=== PATIENT | male | born 1945 | race Caucasian/White ===

== ENCOUNTER → 2017-03-22 | Outpatient (REF) | payer MEDICARE, OTHER ==
[~2017-03-22] MED LIST: /AUGM875TA PO; /WARF5TA PO; ACET65TA PO; AMIO20TA PO; ANDROGEL TOP; ASPI81TA83 OR; ATOR40TA PO; CALCIUM; CALCIUM W VIT D PO; COLA100C3 PO; COUM2.5T11 PO; COUMADIN PO; DDAVP; DESM1SPR; DESMOPRESSIN; DESMOPRESSIN 0.01%; DRIS50002 PO; KEPP750T3 PO; Keppra PO; LEVETIRACETAM PO; LEVO200T4 PO; LEVO25TA2 OR; LEVO2TA OR; LIPI20TA PO; MILKSUS PO; MULT1TAB10 PO; Multivitamin PO; NAPR220C PO; NAPR250T2 PO; NAPR250T45 PO; NAPR500T81 OR; NORV5TAB PO; NYST10PW TOP; OMEP20CA3 PO; OMEP20TA7 OR; OMEP40CA2 PO; PERC5TAB6 PO; PERC5TAB8 OR; PERC5TAB8 PO; PERC7.5T8 PO; PHEN100C OR; PRED10TA PO; PRED10TA2 OR; PRED5EL OR; PRED5TA PO; PRED5TAB OR; PREDNISONE PO; PREDPOW10 PO; SENO8.6T2 PO; SYNT175T OR; SYNT50TA OR; TEST5GEL TOP; TUMS500C PO; TYLE325T5 PO; XARE20TA PO; [UNRECOGNIZED DRUG - OTHER]; [UNRECOGNIZED DRUG - OTHER]; [UNRECOGNIZED DRUG - OTHER] TOP; naproxen OR
== END ==
LOC: M LAB REF 13:29
PROVIDERS: ATTEND Internal Medicine
DX: E03.9 Hypothyroidism, unspecified (principal)

== ENCOUNTER → 2017-04-10 | Outpatient (CLI) | payer MEDICARE, OTHER ==
[~2017-04-10] MED LIST changes: +E-Z-GAS II EFFERVESCENT PACKET (SODIUM BICARB./CITRIC ACID/SIMETHICONE) As Ordered ONE; +E-Z-HD 98% w/w 340GM SUSP BTL As Ordered ONE; +E-Z-PAQUE 96% w/w SUSP 176GM BTL As Ordered ONE
--- NOTE | 2017-04-10 15:43 | REP ---
ESOPHAGRAM AND UPPER GI SINGLE CONTRAST: The procedure was performed under the direct supervision of Dr. Logan. The images were reviewed with Dr. Logan. A single view PA chest x-ray is submitted as a software quality engineer film. There is no change compared to a previous chest x-ray performed on 09/28/2016. Abdominal software quality engineer film shows no organomegaly or pathological masses. The intestinal gas pattern is nonspecific. There are bowel sutures and surgical clips noted in the epigastric region and left abdomen consistent with the patient's history of gastric bypass. Liquid barium was administered in the erect and prone oblique positions. The oral and pharyngeal stages of deglutition are unremarkable. There is cricopharyngeal hypertrophy. Esophageal transport is prompt and efficient and there is no esophagitis, stricture, or mucosal ring. There is a hiatal hernia present. Gastroesophageal reflux is not demonstrated on this examination. Contrast passes through the stomach pouch and anastomosis without delay. There is no evidence of stricture or obstruction. There is no evidence of gastritis, neoplasm, or ulcer disease. The visualized portion of the proximal small bowel appears normal in course and caliber. IMPRESSION: 1. There is cricopharyngeal hypertrophy. 2. Small hiatal hernia. 3. Postsurgical changes consistent with the patient's history of gastric bypass. 2 minutes and 7 seconds of fluoroscopic time was utilized for this procedure. Reviewed by ARI Stewart 04/10/2017 04:14 PEdited and Signed by Huey Logan MD 04/10/2017 05:24 P
== END ==
LOC: M RAD 08:43
PROVIDERS: ATTEND Internal Medicine
DX: Q79.1 Other congenital malformations of diaphragm (principal); K44.9 Diaphragmatic hernia without obstruction or gangrene; Z98.0 Intestinal bypass and anastomosis status

== ENCOUNTER → 2017-04-19 | Outpatient (REF) | payer MEDICARE, OTHER ==
[~2017-04-19] MED LIST changes: -E-Z-GAS II EFFERVESCENT PACKET (SODIUM BICARB./CITRIC ACID/SIMETHICONE) As Ordered ONE; -E-Z-HD 98% w/w 340GM SUSP BTL As Ordered ONE; -E-Z-PAQUE 96% w/w SUSP 176GM BTL As Ordered ONE
[2017-04-19 14:03] LABS: FREE T4 1.54 NG/DL (0.76-1.46)
[2017-04-19 14:10] LABS: VITAMIN B12 LEVEL 294 PG/ML (247-911)
[2017-04-19 14:11] LABS: FOLATE > 24.0 NG/ML (>5.4)
[2017-04-22 15:23] LABS: VITAMIN E LEVEL 8.7 mg/L (5.3-17.5)
== END ==
LOC: M LABNEURO 12:27
PROVIDERS: ATTEND Psychiatry & Neurology Neurology
DX: R20.2 Paresthesia of skin (principal); Z13.1 Encounter for screening for diabetes mellitus; Z79.899 Other long term (current) drug therapy

== ENCOUNTER → 2017-04-25 | Outpatient (CLI) | payer MEDICARE, OTHER | LOC: M RAD 07:46 | PROVIDERS: ATTEND Psychiatry & Neurology Neurology | DX: R25.1 Tremor, unspecified (principal); R26.81 Unsteadiness on feet ==

== ENCOUNTER → 2017-06-26 | Outpatient (CLI) | payer MEDICARE, OTHER ==
[~2017-06-26] MED LIST changes: +AMIO200T PO; -AMIO20TA PO; -ATOR40TA PO; +ATOR40TA75 PO; -COLA100C3 PO; +COLA100C5 PO; -COUM2.5T11 PO; +COUM2.5T17 PO; -NAPR250T2 PO; +NAPR250T4 PO; +PERC5TAB12 PO; -PERC5TAB6 PO; -SENO8.6T2 PO; +SENO8.6T5 PO
--- NOTE | 2017-07-08 23:40 | ECWPNPC ---
PATIENT NAME: GLADIS CUNHA : 1945 GENDER: MALE VISIT DATE: 06/26/2017 DISCHARGE DATE: 06/26/17 1551 VISIT LOCKED DATE TIME: PHYSICIAN: ANA LAURA OVALLES RESOURCE: ANA LAURA OVALLES REASON FOR APPOINTMENT 1. LOW BACK PAIN HISTORY OF PRESENT ILLNESS FALL RISK SCREENING: SCREENING :NO FALLS IN THE PAST YEAR PAIN SCREENING: PATIENT HAS A COMPLAINT OF ACUTE OR CHRONIC PAIN :YES TODAY'S VISIT: NOTES: PT REFERRED BY DR MARTI/[facility] FOR LOW BACK PAIN.ONSET > [address]IVE WAS UNABLE TO STAND AND WALK.PAIN IS CENTERED ACROSS THE BACK. NO RADIATION TO LEGS. HAS HAD INCIDENCE OF WEAKNESS IN KNEES. THIS HAS HAPPENED SEVERAL TIMES - RELIEVED WITH SITTING DOWN. THIS WAS RELIEVED IN A FEW MINUTES. HAS STOCKING LIKE N/T IN BOTH FEET X SEVERAL YEARS. HAD EMG - NEUROPATHY. NO SPECIFIC TIME F DAY - PAIN WOSE WHEN BEING VERTICAL OR WITH UNCOMFORTABLE CHAIR. NO LOSS OF BOWEL OR BLADDER CONTROL. HAS HAD SOME BOWEL URGENCY.RATES HIS PAIN TODAY 5/10. DESCRIBES THE PAIN ACHING AND STABBING.. CURRENT MEDICATIONS TAKING DDAVP RHINAL TUBE 0.01 % SOLUTION 0.05 ML NASALLY TWICE A DAY TAKING ANDROGEL PUMP 1 % GEL TRANSDERMAL TAKING LEVOTHYROXINE SODIUM 200 MCG TABLET 1 TABLET ON AN EMPTY STOMACH IN THE MORNING ORALLY ONCE A DAY TAKING PREDNISONE 5 MG TABLET 1 TABLET ORALLY ONCE A DAY, NOTES: 2 Q AM; 1 QPM TAKING KEPPRA 750 MG TABLET 2 TABLET ORALLY BEFORE BEDTIME TAKING OMEPRAZOLE 40 MG CAPSULE DELAYED RELEASE 1 CAPSULE ORALLY ONCE A DAY TAKING ATORVASTATIN CALCIUM 40 MG TABLET 1 TABLET ORALLY ONCE A DAY TAKING XARELTO 20 MG TABLET 1 TABLET WITH FOOD ORALLY ONCE A DAY TAKING DIGOXIN 125 MCG TABLET 1 TABLET ORALLY ONCE A DAY MEDICATION LIST REVIEWED AND RECONCILED WITH THE PATIENT PAST MEDICAL HISTORY SEIZURES CRANIOPHARYNGIOMA RESCECTED 2X SLEEP APNEA - WEARS CPAP ALLERGIES N.K.D.A. SURGICAL HISTORY RESECTION OF CRANIOPHARYNGIOMA 1997 SECOND RESECTION OF ABOVE (CRANIOPHARYNGIOMA) 2000 TOTAL KNEE REPLACEMENT BARIATRIC SURGERY FOR WEIGHT LOSS PACEMAKER FAMILY HISTORY FATHER: 89 YRS MOTHER: 90 YRS, DIAGNOSED WITH CANCER SIBLINGS: ALIVE 2 BROTHER(S) . 1 SON(S) , 1 DAUGHTER(S) . 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 [employer] LATTER-DAY LANGUAGE LANGUAGES SPOKEN:MALAGASY EDUCATION LEVEL OF EDUCATION:PROFESSIONAL SCHOOLS/MASTERS/PHD LEARNING BARRIERS / SPECIAL NEEDS VISION IMPAIRED?YES :CORRECTIVE LENSES COGNITIVELY IMPAIRED?NO READINESS TO LEARN?YES LEARNING PREFERENCES?YES :BOOKLETS, HANDOUTS ADVANCE DIRECTIVES HEALTH CARE PROXY?YES NAME OF HCP [facility]? PABLITO CUNHA POWER OF GLAZE GRINDER?YES HOSPITALIZATION/MAJOR DIAGNOSTIC PROCEDURE SEE ABOVE RADIATION THERAPY FOR REOCCURANCE OF THE ABOVE PROBLEM 2002 REVIEW OF SYSTEMS REVIEWED BY: PROVIDER: . CONSTITUTIONAL: ANY CHANGE IN YOUR MEDICAL CONDITION? NO . CHILLS NO . FEVER NO . INFECTION: DO YOU HAVE NEW INFECTIONS? NO . DO YOU HAVE HISTORY OF MRSA? NO . MUSCULOSKELETAL: ANY NEW PATTERNS OF PAIN OR NUMBNESS? YES, BILAT FOOT NUMBNESS . SYTEMIC LUPUS NO . GASTROENTEROLOGY: ANY NEW CHANGE IN BOWEL CONTROL? NO . BARRETTS ESOPHAGUS NO . CIRRHOSIS NO . HEPATITIS NO . LIVER FAILURE NO . ACID REFLUX NO . UNEXPLAINED WEIGHT LOSS NO . GENITOURINARY: ANY NEW CHANGE IN BLADDER CONTROL? NO . IS THERE A CHANCE YOU COULD BE ? NO . HEMATOLOGY/LYMPH: DO YOU TAKE ANY BLOOD THINNERS? (FOR EXAMPLE- COUMADIN, PLAVIX, AGGRENOX, PLATEL, PRADAXA, OR XARELTO) YES, XARELTO . WHEN WAS YOUR LAST DOSE? DATE: TIME: . LOW PLATELET COUNT NO . SICKLE CELL DISEASE NO . VON WILLIEBRANDS NO . FACTOR V LEIDEN NO . THALLASEMIA NO . ANEMIA NO . EASY BRUISING NO . NEUROLOGY: ANY NEW SEIZURES? HX OF SIEZURE - WELL MANAGED ON KERA - LAST EVENT 3 YEARS AGO . MYAASTHENIA GRAVIS NO . BALANCE DIFFICULTY PRETTY GOOD . CARDIOLOGY: DO YOU HAVE A PACEMAKER OR DEFIBRILLATOR? YES - 2016 . ANGINA NO . HEART ATTACK NO . HEART SURGERY NO . CONGESTIVE HEART FAILURE/FLUID OVERLOAD NO . CHEST PAIN NO . HIGH BLOOD PRESSURE NO . IRREGULAR HEART BEAT NO . RESPIRATORY: HAVE YOU BEEN SICK IN THE PAST WEEK? NO . FEVER NO . FLU LIKE SYMPTOMS? NO . CPAP NO . BYPAP NO . ASTHMA NO . EMPHYSEMA NO . CHRONIC LUNG DISEASES NO . SHORTNESS OF BREATH ON EXERTION NO . COUGH NO . SNORING NO . INTEGUMENTARY: DO YOU HAVE ANY RASHES OR OPEN SORES? NO . ALLERGIC/IMMUNO: ARE YOU ALLERGIC TO SHELLFISH OR IV DYE? NO . ANY NEW ALLERGIES? NO . PSYCHIATRIC: DO YOU HAVE THOUGHTS OF HURTING YOURSELF OR SOMEONE ELSE? NO . ARE YOU ABUSED, NEGLECTED, OR IN AN UNSAFE ENVIRONMENT? NO . ENDOCRINOLOGY: ARE YOU DIABETIC? NO . THYROID DISORDER NO . OTHER: DO YOU NEED ANY PRESCRIPTIONS? NO . IF YES, PLEASE LIST: ____ . ANY NEW PROBLEMS WITH YOUR MEDICATIONS? NO . WHEN DID YOU LAST EAT? ____ . WHEN DID YOU LAST DRINK? ____ . WHAT DID YOU LAST DRINK? ____ . NAME OF PERSON DRIVING YOU HOME? ____ . DO YOU HAVE ANY OTHER QUESTIONS OR CONCERNS NO . PSYCHOLOGY: BECKS DEPRESSION INVENTORY DENIES SUICIDAL OR HOMICIDAL IDEATION . VITAL SIGNS WT 298.0 LBS, HT 70 IN, BMI 42.75 INDEX, BP 141/68 MM HG, HR 60 /MIN, RR 18 /MIN, TEMP 97.7 F, OXYGEN SAT % 95%, NA INITIALS SC 13:03, REVIEWED BY: EM. EXAMINATION GENERAL EXAMINATION: GENERAL APPEARANCE:WELL GROOMED. PSYCHALERT , ORIENTED X 3 , APPROPRIATE MOOD AND AFFECT , GOOD EYE CONTACT. HEENT:NORMOCEPHALIC, THICK NECK, NO LYMPHADENOPATHY, NO THYROMEGLY. LUNGS:CLEAR TO AUSCULTATION BILATERALLY, NO WHEEZES, RALES OR RHONCHI. HEART:NO CAROTID BRUIRS, , HEART RATE REGULAR, NORMAL S1S2, NO MURMURS, CLICK OR RUBS. MUSCULOSKELETAL:MUSCLE STRENGTH TESTING 5/5 BILATERAL UPPER AND LOWER EXTREMITIES. POINT TENDERNESS OVER LUMBAR SPINOUS PROCESSES AND ACROSS LUMBAR FACETS AND PARAVERTEBRAL MUSCLES. CAN FLEX TO 45 DEGREES, EXTED TO 5 DEGREES. PAIN WITH ROTATION. MIN PAIN WITH SLR BILATERALLY. . EXTREMITIES:1+ EDEMA BILATER LOWER EXTREMITIES. NEUROLOGIC EXAM:CN'S II-XII GROSSLY INTACT. STOCKING AND GLOVE SENSORY CHANGE FRO TOES TO ANKLE BILATERALLY. DTR'S TRACE TO ABSENT BILATERALLY. PLANTAR RESPONSE EQUIVICAL. NO CLONUS. , ABNORMAL ROMBERG TEST. ASSESSMENTS LUMBAR FACET ARTHROPATHY - M12.88 (PRIMARY) NEUROPATHY - G62.9 TREATMENT LUMBAR FACET ARTHROPATHY START TRAMADOL HCL TABLET, 50 MG, 1 TABLET NEEDED, ORALLY, EVERY 6 HRS PRN PAIN MDD=4, 30 DAY(S), 120, REFILLS 1 INJECTION FACET JOINT/NERVE LUMBAR/SACRALRIGOBERTOANA LAURA MEDINA 06/26/2017 3:07:05 PM > DIAGNOSTIC LUMBAR FACET BLOCK - L3-4, L4 - 5 NOTES: NEED OK STOP BLOOD THINNER FROM DR QUINTERO,FACET JOINT INJECTION MATERIAL WAS PRINTED, REVIEWED AND GIVEN TO PT. STOP NAPROXYN, FALLS CARE PLAN: 1. RECOMMEND REMOVING ALL THROW RUGS. 2. RECOMMEND NIGHT LIGHTS 3. RECOMMEND WEARING RUBBER SOLED SHOES AND TO NOT GO BAREFOOT. 4.. ADVISED TO CHANGE POSITION SLOWLY FROM SUPINE TO STANDING TO AVOID DIZZINESS. 5. ADVISED TO USE ASSISTIVE DEVICE SUCH CANE OR WALKER . , #128 - SCREENING BMI AND F/U PLAN IN : BMI ABOVE NORMAL TODAY. DISCUSSED WITH PATIENT NUTRITIONAL FOOD CHOICES TO ASSIST WITH WEIGHT LOSS. RECCOMMENDED REDUCING SALT, SUGAR, SODA INTAKE. RECOMMEND INCREASE ACTIVITY TO INCLUDE WALKING ON A REGULAR BASIS. CLINICAL NOTES: LENGTHY DISCUSSION REGARDING AVAILABLE MEDS FOR PAIN MANAGEMENT DISCUSSED. PT REPORTS HE HAS USED TRAMADOL WITH NO ADVERSE EFFECTS. I DID DISCUSS WITH HIM THAT THIS CAN INCREASE HIS RISK OF SEIZURE. HE STATES HE IS COMFORTABLE WITH THIS AND WISHES TO PROCEDE. PREVENTIVE MEDICINE PT STATES HE NEVER STOPS DDAVP OR PREDNISONE PRE-PROCEDURE EVER. PROCEDURE CODES FA211 ESTABILISHED PATIENT [facility] FACILITY CHARGE G8783 BP SCR PRFRM RCMDD DEFIND SCR INTVL G8418 BMI < 22 CALCUATE W/FOLLOWUP G8730 PAIN ASSESS POS TOOL F/U PLAN DOC 3016F PT SCRND UNHLTHY [place] USE 1124F ACP DISCUSS-NO DSCNMKR DOCD 1036F TOBACCO NON-USER 0518F FALL PLAN OF CARE DOCD G8427 DOC MEDS VERIFIED W/[place] 3288F FALL RISK ASSESSMENT DOCD DISPOSITION & COMMUNICATION FOLLOW UP AFTER PROCEDURE (REASON: NEED MRI REPORT/ CHECK AUTH FOR LUMBAR FACET BLOCK) ELECTRONICALLY SIGNED BY RAYMUNDO REED ON 07/08/2017 AT 03:19 PM EDT DISCLAIMER : THIS IS A VISIT SUMMARY EXTRACTED FROM THE [employer] CHART. IT IS NOT A COPY OF THE [employer] PROGRESS NOTE. MTDD
== END ==
LOC: M PAIN 13:00
PROVIDERS: ATTEND Nurse Practitioner Family
DX: M12.88 Other specific arthropathies, not elsewhere classified, other specified site (principal); G62.9 Polyneuropathy, unspecified; M54.5 Low back pain; G89.29 Other chronic pain; G40.89 Other seizures; G47.30 Sleep apnea, unspecified; Z79.899 Other long term (current) drug therapy; Z98.84 Bariatric surgery status; Z95.0 Presence of cardiac pacemaker; Z96.659 Presence of unspecified artificial knee joint

== ENCOUNTER → 2017-07-11 | Outpatient (CLI) | payer MEDICARE, OTHER ==
[~2017-07-11] MED LIST changes: +BUPIVACAINE HCL 0.25% 30 ML VIAL As Ordered ONE; +ISOVUE-M 300 61% 15ML VIAL (Q9967) As Ordered ONE; +LIDOCAINE 1% SDV INJ 30 ML VIAL As Ordered ONE
--- NOTE | 2017-07-11 11:36 | REP ---
Partial lumbar spine series: Four views. . History: Injection procedure for pain. One minute 12 seconds of fluoroscopy time is reported. Findings: A sequence of four fluoroscopically obtained last image hold procedural spot radiographs of the lumbar spine document needle position and contrast injection associated with injection procedure. Signed by Huey Logan MD 07/11/2017 11:27 A
--- NOTE | 2017-07-11 23:35 | ECWPNPC ---
PATIENT NAME: GLADIS CUNHA : 1945 GENDER: MALE VISIT DATE: 07/11/2017 DISCHARGE DATE: 07/11/17 1120 VISIT LOCKED DATE TIME: PHYSICIAN: THAO ALLEN RESOURCE: THAO ALLEN REASON FOR APPOINTMENT 1. DIAG. LUMBAR FACET HISTORY OF PRESENT ILLNESS HISTORY OF PRESENT ILLNESS: PAIN THE PATIENT DESCRIBES THE PAIN... FALL RISK SCREENING: SCREENING :NO FALLS IN THE PAST YEAR CURRENT MEDICATIONS TAKING DDAVP RHINAL TUBE 0.01 % SOLUTION 0.05 ML NASALLY TWICE A DAY, NOTES: 07/11/17 07 TAKING ANDROGEL PUMP 1 % GEL TRANSDERMAL , NOTES: 07/11/17 07 TAKING LEVOTHYROXINE SODIUM 200 MCG TABLET 1 TABLET ON AN EMPTY STOMACH IN THE MORNING ORALLY ONCE A DAY, NOTES: 07/11/17 0230 TAKING PREDNISONE 5 MG TABLET 1 TABLET ORALLY ONCE A DAY, NOTES: 07/11/17 07 TAKING KEPPRA 750 MG TABLET 2 TABLET ORALLY BEFORE BEDTIME, NOTES: 07/10/17 220 TAKING OMEPRAZOLE 40 MG CAPSULE DELAYED RELEASE 1 CAPSULE ORALLY ONCE A DAY, NOTES: 07/11/17 07 TAKING ATORVASTATIN CALCIUM 40 MG TABLET 1 TABLET ORALLY ONCE A DAY, NOTES: 07/10/17 220 TAKING XARELTO 20 MG TABLET 1 TABLET WITH FOOD ORALLY ONCE A DAY, NOTES: 07/08/17 1600 TAKING DIGOXIN 125 MCG TABLET 1 TABLET ORALLY ONCE A DAY, NOTES: 07/11/17 0700 TAKING TRAMADOL HCL 50 MG TABLET 1 TABLET NEEDED ORALLY EVERY 6 HRS PRN PAIN MDD=4, NOTES: > 3 WEEKS TAKING NAPROXEN 250 MG TABLET 1 TABLET ORALLY TWICE A DAY, NOTES: 07/08/17 1600 MEDICATION LIST REVIEWED AND RECONCILED WITH THE PATIENT PAST MEDICAL HISTORY SEIZURES CRANIOPHARYNGIOMA RESCECTED 2X SLEEP APNEA - WEARS CPAP ALLERGIES N.K.D.A. REVIEW OF SYSTEMS REVIEWED BY: PROVIDER: . CONSTITUTIONAL: ANY CHANGE IN YOUR MEDICAL CONDITION? YES PT HAD CARPAL TUNNEL SURGERY ON THE RIGHT HAND 06/12/17 . CHILLS NO . FEVER NO . INFECTION: DO YOU HAVE NEW INFECTIONS? NO . DO YOU HAVE HISTORY OF MRSA? NO . MUSCULOSKELETAL: ANY NEW PATTERNS OF PAIN OR NUMBNESS? NO . GASTROENTEROLOGY: ANY NEW CHANGE IN BOWEL CONTROL? NO . GENITOURINARY: ANY NEW CHANGE IN BLADDER CONTROL? NO . IS THERE A CHANCE YOU COULD BE ? NO . HEMATOLOGY/LYMPH: DO YOU TAKE ANY BLOOD THINNERS? (FOR EXAMPLE- COUMADIN, PLAVIX, AGGRENOX, PLATEL, PRADAXA, OR XARELTO) YES . WHEN WAS YOUR LAST DOSE? DATE: TIME: 07/07/17 1600 . NEUROLOGY: HAVE YOU FALLEN IN THE PAST 6 MONTHS? NO . ANY NEW EXTREMITY NUMBNESS OR WEAKNESS? NO . CARDIOLOGY: DO YOU HAVE A PACEMAKER OR DEFIBRILLATOR? NO . RESPIRATORY: HAVE YOU BEEN SICK IN THE PAST WEEK? NO . FEVER NO . FLU LIKE SYMPTOMS? NO . COUGH NO . INTEGUMENTARY: DO YOU HAVE ANY RASHES OR OPEN SORES? YES OPEN SCABBED AREA RIGHT WRIST FROM SURGICAL INCISION 06/12/17 . ALLERGIC/IMMUNO: ARE YOU ALLERGIC TO SHELLFISH OR IV DYE? NO . ANY NEW ALLERGIES? NO . PSYCHIATRIC: DO YOU HAVE THOUGHTS OF HURTING YOURSELF OR SOMEONE ELSE? NO . ARE YOU ABUSED, NEGLECTED, OR IN AN UNSAFE ENVIRONMENT? NO . ENDOCRINOLOGY: ARE YOU DIABETIC? NO . OTHER: DO YOU NEED ANY PRESCRIPTIONS? NO . IF YES, PLEASE LIST: ____ . ANY NEW PROBLEMS WITH YOUR MEDICATIONS? NO . WHEN DID YOU LAST EAT? ____07/10/17 2200 . WHEN DID YOU LAST DRINK? ____07/11/17 0700 . WHAT DID YOU LAST DRINK? ____WATER . NAME OF PERSON DRIVING YOU HOME? ____KATHY . DO YOU HAVE ANY OTHER QUESTIONS OR CONCERNS NO . VITAL SIGNS WT 289 LBS, HT 70 IN, BMI 41.46 INDEX, BP 140/65 MM HG, HR 62 /MIN, RR 18 /MIN, TEMP 97.2 F, OXYGEN SAT % 97%, SAFE IN ENV? (Y/N) Y, REVIEWED BY: CHRIS. ASSESSMENTS SPONDYLOSIS OF LUMBAR REGION WITHOUT MYELOPATHY OR RADICULOPATHY - M47.816 (PRIMARY) SPONDYLOSIS OF LUMBOSACRAL REGION WITHOUT MYELOPATHY OR RADICULOPATHY - M47.817 PROCEDURES PN LUMBAR FACET BLOCK DIAGNOSTIC PRE PROCEDURE DIAGNOSIS LUMBAR SPONDYLOSIS, LUMBOSACRAL SPONDYLOSIS POST PROCEDURE DIAGNOSIS LUMBAR SPONDYLOSIS, LUMBOSACRAL SPONDYLOSIS PROCEDURE BILATERAL L4-L5 AND BILATERAL L5-S1 FACET BLOCK DIAGNOSTIC NUMBER [address] THOA ALLEN SENIOR [employer] ADMINISTRATOR NONE ANESTHESIA LOCAL PRE PROCEDURE NOTE THE PATIENT WITH HISTORY OF CHRONIC LOW BACK PAIN. I EVALUATED THE PATIENT AND REVIEWED THE CHART. I WENT OVER THE RISKS, ALTERNATIVES, AND BENEFITS ASSOCIATED WITH THIS PROCEDURE. THE PATIENT WOULD LIKE TO PROCEED AND GAVE CONSENT TO PERFORM THE PROCEDURE. AGREED WITH THE PATIENT WE ARE DOING THIS PROCEDURE TO DETERMINE IF THE PATIENT IS A CANDIDATE FOR A RADIOFREQUENCY ABLATION OF THE FACETS JOINTS. THE PATIENT DENIES UNEXPLAINABLE WEIGHT LOSS, FEVER, CHILLS, OR NEW CHANGES IN URINARY OR BOWEL CONTROL DESCRIPTION OF PROCEDURE THE PATIENT WAS BROUGHT TO THE PROCEDURE ROOM AND PLACED IN THE PRONE POSITION. THE LUMBOSACRAL AREA WAS CLEANED WITH CHLORAPREP SOLUTION AND DRAPED ASEPTICALLY. THE PROCEDURE WAS DONE UNDER STERILE CONDITIONS. I CHECKED LATERALITY AND THE LEVEL WHERE THE PROCEDURE WAS GOING TO BE PERFORMED WITH THE PATIENT AND THE SUPPORTING STAFF AT THE MOMENT OF THE TIME OUT IN THE PROCEDURE ROOM. UNDER FLUOROSCOPIC GUIDANCE, TARGETS WERE SELECTED AT THE INTERSECTION OF THE RIGHT AND LEFT TRANSVERSE PROCESS OF L4, L5 AND ALA OF S1 WITH ITS RESPECTIVE SUPERIOR ARTICULAR PROCESS. LIDOCAINE WAS USED TO NUMB THE SKIN AND THE SUBCUTANEOUS TISSUE BELOW IT. SPINAL NEEDLE, 22-GAUGE WAS ADVANCED UNDER FLUOROSCOPIC GUIDANCE AND FOLLOWING PATIENT FEEDBACK UNTIL THE TARGETS WERE REACHED. POSITION OF THE NEEDLES WAS VERIFIED WITH AP AND LATERAL VIEWS. AFTER PROPER POSITION OF THE NEEDLES WAS ACHIEVED, ISOVUE-M DYE 30% 0.1 ML WAS INJECTED AT EACH SITE SHOWING ADEQUATE SPREAD OF THE DYE. THEN A SOLUTION OF 0.4 ML OF BUPIVACAINE 0.25% WAS INJECTED AT EACH SITE. THERE WAS NO EVIDENCE OF BLOOD, PARESTHESIA OR CEREBROSPINAL FLUID DURING THE PROCEDURE. THE PATIENT WAS SENT TO THE RECOVERY ROOM. THE PATIENT WAS MOVING THE EXTREMITIES AND DOING WELL. THERE WAS NO COMPLICATION DURING THE PROCEDURE. FLUOROSCOPY TIME WAS 72 SECONDS POST PROCEDURE NOTE THE PATIENT WILL DOCUMENT HIS PAIN LEVEL AND RESPONSE TO THIS PROCEDURE EVERY 30 MINUTES. THE PATIENT WILL BE SEEN IN A FOLLOW UP IN THE NEXT FEW WEEKS. FURTHER DETERMINATION FOR HIS CASE WILL BE DONE AT THE NEXT VISIT. INSTRUCTIONS WERE GIVEN, QUESTIONS WERE ANSWERED, AND THE PATIENT EXPRESSED UNDERSTANDING AND AGREED WITH THE PLAN. I, FAHEEM SIMPSON, DOCUMENTED THE ABOVE INFORMATION ACTING A SCRIBE FOR DR. ALLEN. I, DR. ALLEN, HAVE REVIEWED THE ABOVE DOCUMENT, SCRIBED BY FAHEEM SIMPSON, AND I VERIFY THAT IT IS ACCURATE DIAGNOSTIC IMAGING [facility] FACET BLOCK (PAIN)[id number] PROCEDURE CODES 03495 INJ PARAVERT F JNT L/S 1 LEV 31683 INJ PARAVERT F JNT L/S 2 LEV 6045F RADXPS IN END [id number] PXD DISPOSITION & COMMUNICATION FOLLOW UP 3 WEEKS ELECTRONICALLY SIGNED BY THAO ALLEN MD ON 07/11/2017 AT 05:31 PM EDT DISCLAIMER : THIS IS A VISIT SUMMARY EXTRACTED FROM THE [employer] CHART. IT IS NOT A COPY OF THE [email or web address] PROGRESS NOTE. MTDD
== END ==
LOC: M PAIN 08:30
PROVIDERS: ATTEND Anesthesiology
DX: G89.29 Other chronic pain (principal); G47.30 Sleep apnea, unspecified; M47.816 Spondylosis without myelopathy or radiculopathy, lumbar region; M47.817 Spondylosis without myelopathy or radiculopathy, lumbosacral region; M54.5 Low back pain; Z79.891 Long term (current) use of opiate analgesic; Z79.899 Other long term (current) drug therapy
CPT/HCPCS: 64493; 64494; Q9967

== ENCOUNTER → 2017-07-25 | Outpatient (CLI) | payer MEDICARE, OTHER ==
[~2017-07-25] MED LIST changes: -BUPIVACAINE HCL 0.25% 30 ML VIAL As Ordered ONE; -ISOVUE-M 300 61% 15ML VIAL (Q9967) As Ordered ONE; -LIDOCAINE 1% SDV INJ 30 ML VIAL As Ordered ONE
--- NOTE | 2017-08-22 01:26 | ECWPNPC ---
PATIENT NAME: GLADIS CUNHA : 1945 GENDER: MALE VISIT DATE: 07/25/2017 DISCHARGE DATE: 07/25/17 1245 VISIT LOCKED DATE TIME: PHYSICIAN: ANA LAURA OVALLES RESOURCE: ANA LAURA OVALLES REASON FOR APPOINTMENT 1. POST FACET HISTORY OF PRESENT ILLNESS HISTORY OF PRESENT ILLNESS: PAIN THE PATIENT DESCRIBES THE PAIN... FALL RISK SCREENING: SCREENING :NO FALLS IN THE PAST YEAR TODAY'S VISIT: NOTES: S/P BILATERAL LUMBAR FACET BLOCK 07/11/17. HAD EXCELLANT RESPONSE ON LEFT, AND 30-50 % ON RIGHT. AFTER WORKING AT [employer], NOT LEFT, NO REAL CHANGE IN SLEEP. AFTER PROCEDURE HAD PAIN IN RIGHT GROIN WITH SOME DIFF LIFTING RIGHT LEG. . CURRENT MEDICATIONS TAKING DDAVP RHINAL TUBE 0.01 % SOLUTION 0.05 ML NASALLY TWICE A DAY TAKING ANDROGEL PUMP 1 % GEL TRANSDERMAL TAKING LEVOTHYROXINE SODIUM 200 MCG TABLET 1 TABLET ON AN EMPTY STOMACH IN THE MORNING ORALLY ONCE A DAY TAKING PREDNISONE 5 MG TABLET 1 TABLET ORALLY ONCE A DAY TAKING KEPPRA 750 MG TABLET 2 TABLET ORALLY BEFORE BEDTIME TAKING OMEPRAZOLE 40 MG CAPSULE DELAYED RELEASE 1 CAPSULE ORALLY ONCE A DAY TAKING ATORVASTATIN CALCIUM 40 MG TABLET 1 TABLET ORALLY ONCE A DAY TAKING XARELTO 20 MG TABLET 1 TABLET WITH FOOD ORALLY ONCE A DAY TAKING DIGOXIN 125 MCG TABLET 1 TABLET ORALLY ONCE A DAY TAKING NAPROXEN 250 MG TABLET 1 TABLET ORALLY TWICE A DAY, NOTES: TAKING TOTAL OF 3 PER DAY NOT-TAKING TRAMADOL HCL 50 MG TABLET 1 TABLET NEEDED ORALLY EVERY 6 HRS PRN PAIN MDD=4 MEDICATION LIST REVIEWED AND RECONCILED WITH THE PATIENT PAST MEDICAL HISTORY SEIZURES CRANIOPHARYNGIOMA RESCECTED 2X SLEEP APNEA - WEARS CPAP ALLERGIES N.K.D.A. REVIEW OF SYSTEMS REVIEWED BY: PROVIDER: ANA LAURA OVALLES WAITER/WAITRESS ECONOMY CLASS . CONSTITUTIONAL: ANY CHANGE IN YOUR MEDICAL CONDITION? NO . CHILLS NO . FEVER NO . INFECTION: DO YOU HAVE NEW INFECTIONS? NO . DO YOU HAVE HISTORY OF MRSA? NO . MUSCULOSKELETAL: ANY NEW PATTERNS OF PAIN OR NUMBNESS? NO . GASTROENTEROLOGY: ANY NEW CHANGE IN BOWEL CONTROL? YES, URGENCY WITH OCCASIONAL INCONTINENCE . GENITOURINARY: ANY NEW CHANGE IN BLADDER CONTROL? NO . IS THERE A CHANCE YOU COULD BE ? NO . HEMATOLOGY/LYMPH: DO YOU TAKE ANY BLOOD THINNERS? (FOR EXAMPLE- COUMADIN, PLAVIX, AGGRENOX, PLATEL, PRADAXA, OR XARELTO) YES . WHEN WAS YOUR LAST DOSE? DATE: TIME: . NEUROLOGY: HAVE YOU FALLEN IN THE PAST 6 MONTHS? NO . ANY NEW EXTREMITY NUMBNESS OR WEAKNESS? NO . CARDIOLOGY: DO YOU HAVE A PACEMAKER OR DEFIBRILLATOR? YES . RESPIRATORY: HAVE YOU BEEN SICK IN THE PAST WEEK? NO . FEVER NO . FLU LIKE SYMPTOMS? NO . COUGH NO . INTEGUMENTARY: DO YOU HAVE ANY RASHES OR OPEN SORES? YES . ALLERGIC/IMMUNO: ARE YOU ALLERGIC TO SHELLFISH OR IV DYE? NO . ANY NEW ALLERGIES? NO . PSYCHIATRIC: DO YOU HAVE THOUGHTS OF HURTING YOURSELF OR SOMEONE ELSE? NO . ARE YOU ABUSED, NEGLECTED, OR IN AN UNSAFE ENVIRONMENT? NO . ENDOCRINOLOGY: ARE YOU DIABETIC? NO . OTHER: DO YOU NEED ANY PRESCRIPTIONS? NO . IF YES, PLEASE LIST: ____ . ANY NEW PROBLEMS WITH YOUR MEDICATIONS? NO . WHEN DID YOU LAST EAT? ____ . WHEN DID YOU LAST DRINK? ____ . WHAT DID YOU LAST DRINK? ____ . NAME OF PERSON DRIVING YOU HOME? ____ . DO YOU HAVE ANY OTHER QUESTIONS OR CONCERNS NO . VITAL SIGNS WT 290 LBS, HT 70 IN, BMI 41.61 INDEX, BP 127/72 MM HG, HR 60 /MIN, RR 18 /MIN, TEMP 98.2 F, OXYGEN SAT % 95%, NA INITIALS SC 12:04, REVIEWED BY: SHYANNE. EXAMINATION GENERAL EXAMINATION: GENERAL APPEARANCE:WELL GROOMED. PSYCHALERT , ORIENTED X 3 , APPROPRIATE MOOD AND AFFECT , GOOD EYE CONTACT. LUNGS:CLEAR TO AUSCULTATION BILATERALLY, NO WHEEZES, RALES OR RHONCHI. HEART:HEART RATE REGULAR, NORMAL S1S2, . MUSCULOSKELETAL:MUSCLE STRENGTH TESTING 5/5 BILATERAL UPPER AND LOWER EXTREMITIES. MILD TENDERNESS OVER LUMBAR SPINOUS PROCESSES AND ACROSS LUMBAR FACETS AND PARAVERTEBRAL MUSCLES. EXTREMITIES:1+ EDEMA BILATER LOWER EXTREMITIES. NEUROLOGIC EXAM:CN'S II-XII GROSSLY INTACT. STOCKING AND GLOVE SENSORY CHANGE FRO TOES TO ANKLE BILATERALLY. DTR'S TRACE TO ABSENT BILATERALLY.. ASSESSMENTS SPONDYLOSIS OF LUMBAR REGION WITHOUT MYELOPATHY OR RADICULOPATHY - M47.816 (PRIMARY) SPONDYLOSIS OF LUMBOSACRAL REGION WITHOUT MYELOPATHY OR RADICULOPATHY - M47.817 TREATMENT SPONDYLOSIS OF LUMBAR REGION WITHOUT MYELOPATHY OR RADICULOPATHY INJECTION FACET JOINT/NERVE LUMBAR/SACRALANA LAURA OVALLES 07/25/2017 12:27:07 PM > DIAGNOSTIC LUMBAR FACET BLOCK ON RIGHT #2 NOTES: CONTINUE EXERCISES, WALKING AND STRETCHESSTOP XARALTO 3 DAYS PRIOR TO PROCEDUREDO NOT STOP PREDNISONE OR DDAVP PRIOR TO PROCEDURE. PREVENTIVE MEDICINE REVIEWED PRE PROCEDURE CARE AND HOLDING XARELTO/ PT EXPRESSED UNDERSTANDING. PROCEDURE CODES FA211 ESTABILISHED PATIENT [facility] FACILITY CHARGE DISPOSITION & COMMUNICATION FOLLOW UP AFTER PROCEDURE (REASON: CHECK AUTH FOR DIAGNOSTIC LUMBAR FACET BLOCK #2 RIGHT L4-5, L5-S1) ELECTRONICALLY SIGNED BY RAYMUNDO REED ON 08/21/2017 AT 02:11 PM EDT DISCLAIMER : THIS IS A VISIT SUMMARY EXTRACTED FROM THE [employer] CHART. IT IS NOT A COPY OF THE [employer],10E+07 PROGRESS NOTE. PHILIPP
== END ==
LOC: M PAIN 11:30
PROVIDERS: ATTEND Nurse Practitioner Family
DX: G89.29 Other chronic pain (principal); M47.816 Spondylosis without myelopathy or radiculopathy, lumbar region; M47.817 Spondylosis without myelopathy or radiculopathy, lumbosacral region; M54.5 Low back pain; Z86.011 Personal history of benign neoplasm of the brain; G47.30 Sleep apnea, unspecified; Z79.891 Long term (current) use of opiate analgesic; Z79.899 Other long term (current) drug therapy; Z87.891 Personal history of nicotine dependence

== ENCOUNTER → 2017-08-01 | Outpatient (REF) | payer MEDICARE, OTHER ==
[2017-08-01 13:57] LABS: VITAMIN B12 LEVEL 399 PG/ML
[2017-08-01 14:13] LABS: IMMUNOGLOBULIN G 719 MG/DL (681-1648); IMMUNOGLOBULIN M 332 MG/DL (40-230); TOTAL PROTEIN 6.5 GM/DL (6.4-8.2)
[2017-08-02 12:25] LABS: ALBUMIN 3.58 GM/DL (3.29-5.55); GAMMA GLOBULIN % 16.2 % (11.1-18.8)
== END ==
LOC: M LAB REF 12:50
PROVIDERS: ATTEND Internal Medicine
DX: D47.2 Monoclonal gammopathy (principal); E03.9 Hypothyroidism, unspecified; Z98.84 Bariatric surgery status

== ENCOUNTER → 2017-08-15 | Outpatient (CLI) | payer MEDICARE, OTHER ==
[~2017-08-15] MED LIST changes: +BUPIVACAINE HCL 0.25% 30 ML VIAL As Ordered ONE; +ISOVUE-M 300 61% 15ML VIAL (Q9967) As Ordered ONE; +LIDOCAINE 1% SDV INJ 30 ML VIAL As Ordered ONE
--- NOTE | 2017-08-15 11:30 | REP ---
Partial lumbar spine series: Two views. . History: Injection procedure for pain. 28 seconds of fluoroscopy time is reported. Findings: A sequence of two fluoroscopically obtained last image hold procedural spot radiographs of the lumbar spine document needle position and contrast injection associated with injection procedure. Signed by Huey Logan MD 08/15/2017 11:21 A
--- NOTE | 2017-08-21 00:51 | ECWPNPC ---
PATIENT NAME: GLADIS CUNHA : 1945 GENDER: MALE VISIT DATE: 08/15/2017 DISCHARGE DATE: 08/15/17 1014 VISIT LOCKED DATE TIME: PHYSICIAN: THAO ALLEN RESOURCE: THAO ALLEN REASON FOR APPOINTMENT 1. DIAGNOSTIC LUMBAR FACET#2 HISTORY OF PRESENT ILLNESS FALL RISK SCREENING: SCREENING :NO FALLS IN THE PAST YEAR PAIN SCREENING: PATIENT HAS A COMPLAINT OF ACUTE OR CHRONIC PAIN :YES CURRENT MEDICATIONS TAKING DDAVP RHINAL TUBE 0.01 % SOLUTION 0.05 ML NASALLY TWICE A DAY, NOTES: 08/15 8AM TAKING ANDROGEL PUMP 1 % GEL TRANSDERMAL , NOTES: 08/15 8AM TAKING LEVOTHYROXINE SODIUM 200 MCG TABLET 1 TABLET ON AN EMPTY STOMACH IN THE MORNING ORALLY ONCE A DAY, NOTES: 08/15 5AM TAKING PREDNISONE 5 MG TABLET 1 TABLET ORALLY ONCE A DAY, NOTES: 08/15 8A TAKING KEPPRA 750 MG TABLET 2 TABLET ORALLY BEFORE BEDTIME, NOTES: 08/14 11PM TAKING OMEPRAZOLE 40 MG CAPSULE DELAYED RELEASE 1 CAPSULE ORALLY ONCE A DAY, NOTES: 08/15 8AM TAKING ATORVASTATIN CALCIUM 40 MG TABLET 1 TABLET ORALLY ONCE A DAY, NOTES: 08/14 11PM TAKING XARELTO 20 MG TABLET 1 TABLET WITH FOOD ORALLY ONCE A DAY, NOTES: 08/12/17 4PM TAKING DIGOXIN 125 MCG TABLET 1 TABLET ORALLY ONCE A DAY, NOTES: 08/15 8AM TAKING TRAMADOL HCL 50 MG TABLET 1 TABLET NEEDED ORALLY EVERY 6 HRS PRN PAIN MDD=4, NOTES: 08/14 8PM NOT-TAKING NAPROXEN 250 MG TABLET 1 TABLET ORALLY TWICE A DAY, NOTES: 3 WEEKS MEDICATION LIST REVIEWED AND RECONCILED WITH THE PATIENT PAST MEDICAL HISTORY SEIZURES CRANIOPHARYNGIOMA RESCECTED 2X SLEEP APNEA - WEARS CPAP ALLERGIES N.K.D.A. 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 B[employer]IST [id number] [employer]ANG[employer] LANGUAGES SPOKEN:BRITISH EDUCATION LEVEL OF EDUCATION:PROFESSIONAL SCHOOLS/MASTERS/PHD LEARNING BARRIERS / SPECIAL NEEDS VISION IMPAIRED?YES :CORRECTIVE LENSES COGNITIVELY IMPAIRED?NO READINESS TO LEARN?YES LEARNING PREFERENCES?YES :BOOKLETS, HANDOUTS PAIN CLINIC PFS, CLERGY, PUBLIC HEALTH REFERRALS WAS THE PROVIDER NOTIFIED OF ANY PERTINENT INFO?YES HAS THE PATIENT BEEN EDUCATED REGARDING HIS/HER PLAN OF CARE?YES PLEASE DOCUMENT ANY ADDTIONAL DETAILS. DIAGNOSTIC FACET HAS THE PATIENT BEEN EDUCATED REGARDING PAIN, THE RISK FOR PAIN, THE IMPORTANCE OF EFFECTIVE PAIN MANAGEMENT, AND THE PAIN ASSESSMENT PROCESS?YES REVIEWED BY: SASKIA. ADVANCE DIRECTIVES HEALTH CARE PROXY?YES NAME OF HCP PABLITO CUNHA LIVING WILL? PABLITO ALPHONSE POWER OF PROCESS MANAGER?YES REVIEW OF SYSTEMS REVIEWED BY: PROVIDER: . CONSTITUTIONAL: ANY CHANGE IN YOUR MEDICAL CONDITION? NO . CHILLS NO . FEVER NO . INFECTION: DO YOU HAVE NEW INFECTIONS? NO . DO YOU HAVE HISTORY OF MRSA? NO . MUSCULOSKELETAL: ANY NEW PATTERNS OF PAIN OR NUMBNESS? NO . SYTEMIC LUPUS NO . GASTROENTEROLOGY: ANY NEW CHANGE IN BOWEL CONTROL? NO . BARRETTS ESOPHAGUS NO . CIRRHOSIS NO . HEPATITIS NO . LIVER FAILURE NO . ACID REFLUX NO . UNEXPLAINED WEIGHT LOSS NO . GENITOURINARY: ANY NEW CHANGE IN BLADDER CONTROL? NO . IS THERE A CHANCE YOU COULD BE ? NO . HEMATOLOGY/LYMPH: DO YOU TAKE ANY BLOOD THINNERS? (FOR EXAMPLE- COUMADIN, PLAVIX, AGGRENOX, PLATEL, PRADAXA, OR XARELTO) XARELTO 08/12/17 4PM . WHEN WAS YOUR LAST DOSE? DATE: TIME: . LOW PLATELET COUNT NO . SICKLE CELL DISEASE NO . VON WILLIEBRANDS NO . FACTOR V LEIDEN NO . THALLASEMIA NO . ANEMIA NO . EASY BRUISING NO . NEUROLOGY: HAVE YOU FALLEN IN THE PAST 6 MONTHS? NO . ANY NEW EXTREMITY NUMBNESS OR WEAKNESS? NO . HEAD INJURY NO . DEMENTIA NO . CEREBRAL PALSY NO . MULTIPLE SCLEROSIS NO . DIZZINESS NO . HEADACHE NO . STROKES NO . VERTIGO NO . CARDIOLOGY: DO YOU HAVE A PACEMAKER OR DEFIBRILLATOR? YES. . ANGINA NO . HEART ATTACK NO . HEART SURGERY NO . CONGESTIVE HEART FAILURE/FLUID OVERLOAD NO . CHEST PAIN NO . HIGH BLOOD PRESSURE NO . IRREGULAR HEART BEAT NO . RESPIRATORY: HAVE YOU BEEN SICK IN THE PAST WEEK? NO . FEVER NO . FLU LIKE SYMPTOMS? NO . CPAP NO . BYPAP NO . ASTHMA NO . EMPHYSEMA NO . CHRONIC LUNG DISEASES NO . SHORTNESS OF BREATH ON EXERTION NO . COUGH NO . SNORING NO . INTEGUMENTARY: DO YOU HAVE ANY RASHES OR OPEN SORES? NO . ALLERGIC/IMMUNO: ARE YOU ALLERGIC TO SHELLFISH OR IV DYE? NO . ANY NEW ALLERGIES? NO . PSYCHIATRIC: DO YOU HAVE THOUGHTS OF HURTING YOURSELF OR SOMEONE ELSE? NO . ARE YOU ABUSED, NEGLECTED, OR IN AN UNSAFE ENVIRONMENT? NO . ENDOCRINOLOGY: ARE YOU DIABETIC? NO . THYROID DISORDER NO . OTHER: DO YOU NEED ANY PRESCRIPTIONS? NO . IF YES, PLEASE LIST: ____ . ANY NEW PROBLEMS WITH YOUR MEDICATIONS? NO . WHEN DID YOU LAST EAT? 08/15/17 8PM . WHEN DID YOU LAST DRINK? 08/16 8AM . WHAT DID YOU LAST DRINK? WATER . NAME OF PERSON DRIVING YOU HOME? SANTY CUNHA . DO YOU HAVE ANY OTHER QUESTIONS OR CONCERNS NO . VITAL SIGNS WT 286 LBS, HT 70 IN, BMI 41.03 INDEX, BP 32/75 MM HG, HR 60 /MIN, RR 18 /MIN, TEMP 97.4 F, OXYGEN SAT % 93%, SAFE IN ENV? (Y/N) Y, NA INITIALS FL 08:49, REVIEWED BY: SASKIA. ASSESSMENTS SPONDYLOSIS OF LUMBAR REGION WITHOUT MYELOPATHY OR RADICULOPATHY - M47.816 (PRIMARY) SPONDYLOSIS OF LUMBOSACRAL REGION WITHOUT MYELOPATHY OR RADICULOPATHY - M47.817 PROCEDURES PN LUMBAR FACET BLOCK DIAGNOSTIC PRE PROCEDURE DIAGNOSIS LUMBAR SPONDYLOSIS, LUMBOSACRAL SPONDYLOSIS POST PROCEDURE DIAGNOSIS LUMBAR SPONDYLOSIS, LUMBOSACRAL SPONDYLOSIS PROCEDURE RIGHT L4-L5 AND RIGHT L5-S1 FACET BLOCK DIAGNOSTIC NUMBER [address] THAO ALLEN MEMORY CARE PROGRAM RESIDENT NONE ANESTHESIA LOCAL PRE PROCEDURE NOTE THE PATIENT WITH HISTORY OF CHRONIC LOW BACK PAIN. I EVALUATED THE PATIENT AND REVIEWED THE CHART. I WENT OVER THE RISKS, ALTERNATIVES, AND BENEFITS ASSOCIATED WITH THIS PROCEDURE. THE PATIENT WOULD LIKE TO PROCEED AND GAVE CONSENT TO PERFORM THE PROCEDURE. AGREED WITH THE PATIENT WE ARE DOING THIS PROCEDURE TO DETERMINE IF THE PATIENT IS A CANDIDATE FOR A RADIOFREQUENCY ABLATION OF THE FACETS JOINTS. THE PATIENT DENIES UNEXPLAINABLE WEIGHT LOSS, FEVER, CHILLS, OR NEW CHANGES IN URINARY OR BOWEL CONTROL DESCRIPTION OF PROCEDURE THE PATIENT WAS BROUGHT TO THE PROCEDURE ROOM AND PLACED IN THE PRONE POSITION. THE LUMBOSACRAL AREA WAS CLEANED WITH CHLORAPREP SOLUTION AND DRAPED ASEPTICALLY. THE PROCEDURE WAS DONE UNDER STERILE CONDITIONS. I CHECKED LATERALITY AND THE LEVEL WHERE THE PROCEDURE WAS GOING TO BE PERFORMED WITH THE PATIENT AND THE SUPPORTING STAFF AT THE MOMENT OF THE TIME OUT IN THE PROCEDURE ROOM. UNDER FLUOROSCOPIC GUIDANCE, TARGETS WERE SELECTED AT THE INTERSECTION OF THE RIGHT TRANSVERSE PROCESS OF L4, L5 AND ALA OF S1 WITH ITS RESPECTIVE SUPERIOR ARTICULAR PROCESS. LIDOCAINE WAS USED TO NUMB THE SKIN AND THE SUBCUTANEOUS TISSUE BELOW IT. SPINAL NEEDLE, 22-GAUGE WAS ADVANCED UNDER FLUOROSCOPIC GUIDANCE AND FOLLOWING PATIENT FEEDBACK UNTIL THE TARGETS WERE REACHED. POSITION OF THE NEEDLES WAS VERIFIED WITH AP AND LATERAL VIEWS. AFTER PROPER POSITION OF THE NEEDLES WAS ACHIEVED, ISOVUE-M DYE 30% 0.1 ML WAS INJECTED AT EACH SITE SHOWING ADEQUATE SPREAD OF THE DYE. THEN A SOLUTION OF 0.4 ML OF BUPIVACAINE 0.25% WAS INJECTED AT EACH SITE. THERE WAS NO EVIDENCE OF BLOOD, PARESTHESIA OR CEREBROSPINAL FLUID DURING THE PROCEDURE. THE PATIENT WAS SENT TO THE RECOVERY ROOM. THE PATIENT WAS MOVING THE EXTREMITIES AND DOING WELL. THERE WAS NO COMPLICATION DURING THE PROCEDURE. FLUOROSCOPY TIME WAS 29 SECONDS POST PROCEDURE NOTE THE PATIENT WILL DOCUMENT HIS PAIN LEVEL AND RESPONSE TO THIS PROCEDURE EVERY 30 MINUTES. THE PATIENT WILL BE SEEN IN A FOLLOW UP IN THE NEXT FEW WEEKS. FURTHER DETERMINATION FOR HIS CASE WILL BE DONE AT THE NEXT VISIT. INSTRUCTIONS WERE GIVEN, QUESTIONS WERE ANSWERED, AND THE PATIENT EXPRESSED UNDERSTANDING AND AGREED WITH THE PLAN. I, FAHEEM SIMPSON, DOCUMENTED THE ABOVE INFORMATION ACTING A SCRIBE FOR DR. ALLEN. I, DR. ALLEN, HAVE REVIEWED THE ABOVE DOCUMENT, SCRIBED BY FAHEEM SIMPSON, AND I VERIFY THAT IT IS ACCURATE DIAGNOSTIC IMAGING [facility] FACET BLOCK (PAIN)[id number] PROCEDURE CODES 01747 INJ PARAVERT F JNT L/S 1 LEV, MODIFIERS: [place] [address] INJ PARAVERT F JNT L/S 2 LEV, MODIFIERS: RT 6045F RADXPS IN END [id number] PXD DISPOSITION & COMMUNICATION FOLLOW UP 3 WEEKS ELECTRONICALLY SIGNED BY THAO ALLEN MD ON 08/20/2017 AT 02:49 AM EDT DISCLAIMER : THIS IS A VISIT SUMMARY EXTRACTED FROM THE [employer] CHART. IT IS NOT A COPY OF THE [employer] PROGRESS NOTE. MTDD
== END ==
LOC: M PAIN 08:30
PROVIDERS: ATTEND Anesthesiology
DX: G89.29 Other chronic pain (principal); M54.5 Low back pain; M47.816 Spondylosis without myelopathy or radiculopathy, lumbar region; M47.817 Spondylosis without myelopathy or radiculopathy, lumbosacral region; Z79.891 Long term (current) use of opiate analgesic; Z79.899 Other long term (current) drug therapy
CPT/HCPCS: 64493; 64494; Q9967

== ENCOUNTER → 2017-08-17 | Outpatient (REF) | payer MEDICARE, OTHER ==
[~2017-08-17] MED LIST changes: -BUPIVACAINE HCL 0.25% 30 ML VIAL As Ordered ONE; -ISOVUE-M 300 61% 15ML VIAL (Q9967) As Ordered ONE; -LIDOCAINE 1% SDV INJ 30 ML VIAL As Ordered ONE
[2017-08-22 08:06] LABS: BETA 2 MICROGLOBULIN 2.1 mg/L (0.6-2.4); FREE KAPPA LIGHT CHAINS SERUM 20.9 mg/L (3.3-19.4); FREE LAMBDA LIGHT CHAINS SERUM 23.8 mg/L (5.7-26.3); KAPPA/LAMBDA RATIO SERUM 0.88 (0.26-1.65)
== END ==
LOC: M LAB REF 12:43
PROVIDERS: ATTEND Internal Medicine Medical Oncology
DX: D47.2 Monoclonal gammopathy (principal)

== ENCOUNTER → 2017-09-12 | Outpatient (CLI) | payer MEDICARE, OTHER ==
--- NOTE | 2017-10-04 01:49 | ECWPNPC ---
PATIENT NAME: GLADSI CUNHA : 1945 GENDER: MALE VISIT DATE: 09/12/2017 DISCHARGE DATE: 09/12/17 1626 VISIT LOCKED DATE TIME: PHYSICIAN: ANA LAURA OVALLES RESOURCE: ANA LAURA OVALLES REASON FOR APPOINTMENT 1. POST PROCEDURE HISTORY OF PRESENT ILLNESS HISTORY OF PRESENT ILLNESS: PAIN THE PATIENT DESCRIBES THE PAIN... FALL RISK SCREENING: SCREENING :NO FALLS IN THE PAST YEAR TODAY'S VISIT: NOTES: /P DIAGOSTIC LFB ON RIGHT WITH PAIN FECREASE OF >50 % X 2-3 DAYS. . CURRENT MEDICATIONS TAKING DDAVP RHINAL TUBE 0.01 % SOLUTION 0.05 ML NASALLY TWICE A DAY TAKING ANDROGEL PUMP 1 % GEL TRANSDERMAL TAKING LEVOTHYROXINE SODIUM 200 MCG TABLET 1 TABLET ON AN EMPTY STOMACH IN THE MORNING ORALLY ONCE A DAY TAKING PREDNISONE 5 MG TABLET 1 TABLET ORALLY ONCE A DAY TAKING KEPPRA 750 MG TABLET 2 TABLET ORALLY BEFORE BEDTIME TAKING OMEPRAZOLE 40 MG CAPSULE DELAYED RELEASE 1 CAPSULE ORALLY ONCE A DAY TAKING ATORVASTATIN CALCIUM 40 MG TABLET 1 TABLET ORALLY ONCE A DAY TAKING XARELTO 20 MG TABLET 1 TABLET WITH FOOD ORALLY ONCE A DAY TAKING DIGOXIN 125 MCG TABLET 1 TABLET ORALLY ONCE A DAY TAKING TRAMADOL HCL 50 MG TABLET 1 TABLET NEEDED ORALLY EVERY 6 HRS PRN PAIN MDD=4 NOT-TAKING NAPROXEN 250 MG TABLET 1 TABLET ORALLY TWICE A DAY MEDICATION LIST REVIEWED AND RECONCILED WITH THE PATIENT PAST MEDICAL HISTORY SEIZURES CRANIOPHARYNGIOMA RESCECTED 2X SLEEP APNEA - WEARS CPAP ALLERGIES N.K.D.A. 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 DIAGNOSTIC FACET HAS THE PATIENT BEEN EDUCATED REGARDING PAIN, THE RISK FOR PAIN, THE IMPORTANCE OF EFFECTIVE PAIN MANAGEMENT, AND THE PAIN ASSESSMENT PROCESS?YES REVIEWED BY: SASKIA. ADVANCE DIRECTIVES HEALTH CARE PROXY?YES NAME OF HCP PABLITO CUNHA LIVING WILL? PABLITO CUNHA POWER OF [employer] HEAT PUMP TECHNICIAN?YES REVIEW OF SYSTEMS REVIEWED BY: PROVIDER: . CONSTITUTIONAL: ANY CHANGE IN YOUR MEDICAL CONDITION? NO . CHILLS NO . FEVER NO . INFECTION: DO YOU HAVE NEW INFECTIONS? NO . DO YOU HAVE HISTORY OF MRSA? NO . MUSCULOSKELETAL: ANY NEW PATTERNS OF PAIN OR NUMBNESS? NO . GASTROENTEROLOGY: ANY NEW CHANGE IN BOWEL CONTROL? NO . GENITOURINARY: ANY NEW CHANGE IN BLADDER CONTROL? NO . IS THERE A CHANCE YOU COULD BE ? NO . HEMATOLOGY/LYMPH: DO YOU TAKE ANY BLOOD THINNERS? (FOR EXAMPLE- COUMADIN, PLAVIX, AGGRENOX, PLATEL, PRADAXA, OR XARELTO) YES, XARLTO . WHEN WAS YOUR LAST DOSE? DATE: TIME: . NEUROLOGY: HAVE YOU FALLEN IN THE PAST 6 MONTHS? NO . ANY NEW EXTREMITY NUMBNESS OR WEAKNESS? NO . CARDIOLOGY: DO YOU HAVE A PACEMAKER OR DEFIBRILLATOR? YES . RESPIRATORY: HAVE YOU BEEN SICK IN THE PAST WEEK? NO . FEVER NO . FLU LIKE SYMPTOMS? NO . COUGH NO . INTEGUMENTARY: DO YOU HAVE ANY RASHES OR OPEN SORES? NO . ALLERGIC/IMMUNO: ARE YOU ALLERGIC TO SHELLFISH OR IV DYE? NO . ANY NEW ALLERGIES? NO . PSYCHIATRIC: DO YOU HAVE THOUGHTS OF HURTING YOURSELF OR SOMEONE ELSE? NO . ARE YOU ABUSED, NEGLECTED, OR IN AN UNSAFE ENVIRONMENT? NO . ENDOCRINOLOGY: ARE YOU DIABETIC? NO . OTHER: DO YOU NEED ANY PRESCRIPTIONS? YES . IF YES, PLEASE LIST: NEURONTIN, PAIN MED . ANY NEW PROBLEMS WITH YOUR MEDICATIONS? NO . WHEN DID YOU LAST EAT? ____ . WHEN DID YOU LAST DRINK? ____ . WHAT DID YOU LAST DRINK? ____ . NAME OF PERSON DRIVING YOU HOME? ____ . DO YOU HAVE ANY OTHER QUESTIONS OR CONCERNS WANTS TO PROCEED WITH RF . VITAL SIGNS WT 281.0 LBS, HT 70 IN, BMI 40.31 INDEX, BP 143/68 MM HG, HR 72 /MIN, RR 16 /MIN, TEMP 97.4 F, OXYGEN SAT % 96%, NA INITIALS TL 1509. ASSESSMENTS SPONDYLOSIS OF LUMBAR REGION WITHOUT MYELOPATHY OR RADICULOPATHY - M47.816 (PRIMARY) SPONDYLOSIS OF LUMBOSACRAL REGION WITHOUT MYELOPATHY OR RADICULOPATHY - M47.817 TREATMENT SPONDYLOSIS OF LUMBAR REGION WITHOUT MYELOPATHY OR RADICULOPATHY START GABAPENTIN CAPSULE, 300 MG, 1 CAPSULE, ORALLY, THREE TIMES A DAY, 30 DAY(S), 90, REFILLS 1 RF FACET LUMBAR SACRAL STEVEANA LAURA Jhonathan 09/12/2017 4:07:08 PM > RIGHT NOTES: DO NOT STOP DDAVP AND PREDNISONE FOR PROCEDURE. HOLD XARALTO X 3 DAYS FOR PROCEDURE. START GABAPENTIN 300 MG AT BEDTIME X 3 DAYS, THEN INCREASE TO TWICE A DAY X 3 DAYS AND THEN TO 3 TIMES PER DAY. OK TO WEAN OFF IN SAME WAY WHEN PAIN IN GROIN RECEDES. PREVENTIVE MEDICINE REVIEWED RF PROCEDURE AND PRE PROCEDURE CARE WITH PT EXPRESSING UNDERSTANDING OF ALL. PROCEDURE CODES FA211 ESTABILISHED PATIENT [facility] FACILITY CHARGE DISPOSITION & COMMUNICATION FOLLOW UP AFTER PROCEDURE (REASON: DEANN CHECK AUTH AND SCHED FOR RIGHT L4-5 AND L5-S1 RFI) ELECTRONICALLY SIGNED BY RAYMUNDO REED ON 10/02/2017 AT 08:37 AM EST DISCLAIMER : THIS IS A VISIT SUMMARY EXTRACTED FROM THE [employer] CHART. IT IS NOT A COPY OF THE [employer] PROGRESS NOTE. PHILIPP
== END ==
LOC: M PAIN 14:30
PROVIDERS: ATTEND Nurse Practitioner Family
DX: M47.816 Spondylosis without myelopathy or radiculopathy, lumbar region (principal); M47.817 Spondylosis without myelopathy or radiculopathy, lumbosacral region; Z79.899 Other long term (current) drug therapy; Z79.891 Long term (current) use of opiate analgesic

== ENCOUNTER 2017-10-03 08:25 | Outpatient (RCR) | payer MEDICARE, OTHER | END 2017-10-04 | LOC: M OT 08:25 | PROVIDERS: ATTEND Orthopaedic Surgery | DX: Z51.89 Encounter for other specified aftercare (principal); M18.11 Unilateral primary osteoarthritis of first carpometacarpal joint, right hand; M65.311 Trigger thumb, right thumb | CPT/HCPCS: 97035; 97110; 97140; G8984; G8985 ==

== ENCOUNTER → 2017-10-04 | Outpatient (CLI) | payer MEDICARE, OTHER ==
[~2017-10-04] MED LIST changes: +BUPIVACAINE HCL 0.25% 30 ML VIAL As Ordered ONE; +ISOVUE-M 300 61% 15ML VIAL (Q9967) As Ordered ONE; +LIDOCAINE 1% SDV INJ 30 ML VIAL As Ordered ONE; +TRIAMCINOLONE ACETONIDE SUSP 40 MG/ML VIAL (J3301) As Ordered ONE; +diazePAM 5 MG TAB As Ordered ONE; +oxyCODONE 5MG TAB As Ordered ONE
--- NOTE | 2017-10-04 16:10 | REP ---
Partial lumbar spine series: Two views. . History: Injection procedure for pain. 33 seconds of fluoroscopy time is reported. Findings: A sequence of two fluoroscopically obtained last image hold procedural spot radiographs of the lumbar spine document needle position and contrast injection associated with injection procedure. Signed by Huey Logan MD 10/04/2017 04:00 P
--- NOTE | 2017-10-17 01:12 | ECWPNPC ---
PATIENT NAME: GLADIS CUNHA : 1945 GENDER: MALE VISIT DATE: 10/04/2017 DISCHARGE DATE: 10/04/17 1551 VISIT LOCKED DATE TIME: PHYSICIAN: THAO ALLEN RESOURCE: THAO ALLEN REASON FOR APPOINTMENT 1. LFBT HISTORY OF PRESENT ILLNESS FALL RISK SCREENING: SCREENING :NO FALLS IN THE PAST YEAR PAIN SCREENING: PATIENT HAS A COMPLAINT OF ACUTE OR CHRONIC PAIN :YES CURRENT MEDICATIONS TAKING DDAVP RHINAL TUBE 0.01 % SOLUTION 0.05 ML NASALLY TWICE A DAY, NOTES: 10/04 5AM TAKING ANDROGEL PUMP 1 % GEL TRANSDERMAL , NOTES: 10/04 12NOON TAKING LEVOTHYROXINE SODIUM 200 MCG TABLET 1 TABLET ON AN EMPTY STOMACH IN THE MORNING ORALLY ONCE A DAY, NOTES: 10/04 2AM TAKING PREDNISONE 5 MG TABLET 1 TABLET ORALLY ONCE A DAY, NOTES: 10/04 9AM TAKING KEPPRA 750 MG TABLET 2 TABLET ORALLY BEFORE BEDTIME, NOTES: 10/03 10PM TAKING OMEPRAZOLE 40 MG CAPSULE DELAYED RELEASE 1 CAPSULE ORALLY ONCE A DAY, NOTES: 10/04 9AM TAKING ATORVASTATIN CALCIUM 40 MG TABLET 1 TABLET ORALLY ONCE A DAY, NOTES: 10/03 10PM TAKING XARELTO 20 MG TABLET 1 TABLET WITH FOOD ORALLY ONCE A DAY, NOTES: 10/01 3PM TAKING DIGOXIN 125 MCG TABLET 1 TABLET ORALLY ONCE A DAY, NOTES: 10/04 9AM TAKING GABAPENTIN 300 MG CAPSULE 1 CAPSULE ORALLY THREE TIMES A DAY, NOTES: 10/01 10AM NOT-TAKING TRAMADOL HCL 50 MG TABLET 1 TABLET NEEDED ORALLY EVERY 6 HRS PRN PAIN MDD=4 NOT-TAKING NAPROXEN 250 MG TABLET 1 TABLET ORALLY TWICE A DAY MEDICATION LIST REVIEWED AND RECONCILED WITH THE PATIENT PAST MEDICAL HISTORY SEIZURES CRANIOPHARYNGIOMA RESCECTED 2X SLEEP APNEA - WEARS CPAP ALLERGIES N.K.D.A. 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 PENTECOSTALISM [id number] PENTECOSTAL LANGUAGE LANGUAGES SPOKEN:YORUBA EDUCATION LEVEL OF EDUCATION:PROFESSIONAL SCHOOLS/MASTERS/PHD LEARNING BARRIERS / SPECIAL NEEDS VISION IMPAIRED?YES :CORRECTIVE LENSES COGNITIVELY IMPAIRED?NO READINESS TO LEARN?YES LEARNING PREFERENCES?YES :BOOKLETS, HANDOUTS PAIN CLINIC PFS, CLERGY, PUBLIC HEALTH REFERRALS WAS THE PROVIDER NOTIFIED OF ANY PERTINENT INFO?YES HAS THE PATIENT BEEN EDUCATED REGARDING HIS/HER PLAN OF CARE?YES PLEASE DOCUMENT ANY ADDTIONAL DETAILS. RADIOFREQUENCY - RIGHT HAS THE PATIENT BEEN EDUCATED REGARDING PAIN, THE RISK FOR PAIN, THE IMPORTANCE OF EFFECTIVE PAIN MANAGEMENT, AND THE PAIN ASSESSMENT PROCESS?YES REVIEWED BY: SASKIA. ADVANCE DIRECTIVES HEALTH CARE PROXY?YES NAME OF HCP PABLITO CUNHA LIVING WILL? PABLITO CUNHA POWER OF DOCTOR PODIATRIC MEDICINE?YES HOSPITALIZATION/MAJOR DIAGNOSTIC PROCEDURE SEE ABOVE RADIATION THERAPY FOR REOCCURANCE OF THE ABOVE PROBLEM 2002 REVIEW OF SYSTEMS REVIEWED BY: PROVIDER: . CONSTITUTIONAL: ANY CHANGE IN YOUR MEDICAL CONDITION? NO . CHILLS NO . FEVER NO . INFECTION: DO YOU HAVE NEW INFECTIONS? NO . DO YOU HAVE HISTORY OF MRSA? NO . MUSCULOSKELETAL: ANY NEW PATTERNS OF PAIN OR NUMBNESS? NO . SYTEMIC LUPUS NO . GASTROENTEROLOGY: ANY NEW CHANGE IN BOWEL CONTROL? NO . BARRETTS ESOPHAGUS NO . CIRRHOSIS NO . HEPATITIS NO . LIVER FAILURE NO . ACID REFLUX NO . UNEXPLAINED WEIGHT LOSS NO . GENITOURINARY: ANY NEW CHANGE IN BLADDER CONTROL? NO . IS THERE A CHANCE YOU COULD BE ? NO . HEMATOLOGY/LYMPH: DO YOU TAKE ANY BLOOD THINNERS? (FOR EXAMPLE- COUMADIN, PLAVIX, AGGRENOX, PLATEL, PRADAXA, OR XARELTO) YES, XARELTO 10/01 3PM . WHEN WAS YOUR LAST DOSE? DATE: TIME: . LOW PLATELET COUNT NO . SICKLE CELL DISEASE NO . VON WILLIEBRANDS NO . FACTOR V LEIDEN NO . THALLASEMIA NO . ANEMIA NO . EASY BRUISING NO . NEUROLOGY: HAVE YOU FALLEN IN THE PAST 6 MONTHS? NO . ANY NEW EXTREMITY NUMBNESS OR WEAKNESS? NO . HEAD INJURY NO . DEMENTIA NO . CEREBRAL PALSY NO . MULTIPLE SCLEROSIS NO . DIZZINESS NO . HEADACHE NO . STROKES NO . VERTIGO NO . CARDIOLOGY: DO YOU HAVE A PACEMAKER OR DEFIBRILLATOR? NO . ANGINA NO . HEART ATTACK NO . HEART SURGERY NO . CONGESTIVE HEART FAILURE/FLUID OVERLOAD NO . CHEST PAIN NO . HIGH BLOOD PRESSURE NO . IRREGULAR HEART BEAT NO . RESPIRATORY: HAVE YOU BEEN SICK IN THE PAST WEEK? NO . FEVER NO . FLU LIKE SYMPTOMS? NO . CPAP NO . BYPAP NO . ASTHMA NO . EMPHYSEMA NO . CHRONIC LUNG DISEASES NO . SHORTNESS OF BREATH ON EXERTION NO . COUGH NO . SNORING NO . INTEGUMENTARY: DO YOU HAVE ANY RASHES OR OPEN SORES? NO . ALLERGIC/IMMUNO: ARE YOU ALLERGIC TO SHELLFISH OR IV DYE? NO . ANY NEW ALLERGIES? NO . PSYCHIATRIC: DO YOU HAVE THOUGHTS OF HURTING YOURSELF OR SOMEONE ELSE? NO . ARE YOU ABUSED, NEGLECTED, OR IN AN UNSAFE ENVIRONMENT? NO . ENDOCRINOLOGY: ARE YOU DIABETIC? NO . THYROID DISORDER NO . OTHER: DO YOU NEED ANY PRESCRIPTIONS? NO . IF YES, PLEASE LIST: ____ . ANY NEW PROBLEMS WITH YOUR MEDICATIONS? NO . WHEN DID YOU LAST EAT? 10/04 9AM . WHEN DID YOU LAST DRINK? 10/04 9AM . WHAT DID YOU LAST DRINK? ORANGE JUICE . NAME OF PERSON DRIVING YOU HOME? SANTY . DO YOU HAVE ANY OTHER QUESTIONS OR CONCERNS PT HAS PACEMAKER IN PLACE, NOT ABLE TO DO RADIOFREQUENCY. . VITAL SIGNS WT 288.0 LBS, HT 70 IN, BMI 41.32 INDEX, BP 128/64 MM HG, HR 60 /MIN, RR 16 /MIN, TEMP 98.3 F, OXYGEN SAT % 96%, SAFE IN ENV? (Y/N) Y, NA INITIALS TL 1322, REVIEWED BY: SASKIA. ASSESSMENTS SPONDYLOSIS OF LUMBAR REGION WITHOUT MYELOPATHY OR RADICULOPATHY - M47.816 (PRIMARY) SPONDYLOSIS OF LUMBOSACRAL REGION WITHOUT MYELOPATHY OR RADICULOPATHY - M47.817 PROCEDURES PN LUMBAR FACET BLOCK THERAPEUTIC PRE PROCEDURE DIAGNOSIS LUMBAR SPONDYLOSIS, LUMBOSACRAL SPONDYLOSIS POST PROCEDURE DIAGNOSIS LUMBAR SPONDYLOSIS, LUMBOSACRAL SPONDYLOSIS PROCEDURE BILATERAL L4-L5 AND BILATERAL L5-S1 LUMBAR FACET THERAPEUTIC BLOCK SURGEON DR. THAO ALLEN DIE MAKER STAMPING NONE ANESTHESIA LOCAL PRE PROCEDURE NOTE THE PATIENT HAS A HISTORY OF CHRONIC LOW BACK PAIN. I EVALUATE THE PATIENT AND REVIEWED THE CHART. I WENT OVER THE RISKS, ALTERNATIVES, AND BENEFITS ASSOCIATED WITH THIS PROCEDURE. THE PATIENT WOULD LIKE TO PROCEED AND GIVE CONSENT TO PERFORMED THE PROCEDURE. THE PATIENT DENIES UNEXPLAINABLE WEIGHT LOSS, FEVER, CHILLS, OR NEW CHANGES IN URINARY OR BOWEL CONTROL DESCRIPTION OF PROCEDURE THE PATIENT WAS BROUGHT TO THE PROCEDURE ROOM AND PLACED IN THE PRONE POSITION. THE LUMBOSACRAL AREA WAS CLEANED WITH CHLORAPREP SOLUTION AND DRAPED ASEPTICALLY. THE PROCEDURE WAS DONE UNDER STERILE CONDITIONS. I CHECKED LATERALITY AND THE LEVEL WHERE THE PROCEDURE WAS GOING TO BE PERFORMED WITH THE PATIENT AND THE SUPPORTING STAFF AT THE MOMENT OF THE TIME OUT IN THE PROCEDURE ROOM. UNDER FLUOROSCOPIC GUIDANCE, THE TARGET POINT WAS SELECTED AT THE RIGHT AND LEFT L4-L5 AND RIGHT AND LEFT L5-S1 FACET JOINT. TARGET POINT WAS SELECTED AFTER LATERAL ROTATION AND TILT OF THE MAGNIFIER OF THE C-ARM. LIDOCAINE 0.5% WAS USED TO NUMB THE SKIN AND THE SUBCUTANEOUS TISSUE BELOW IT. SPINAL NEEDLES, 22-GAUGE, WERE ADVANCED UNDER FLUOROSCOPIC GUIDANCE AND FOLLOWING PATIENT FEEDBACK UNTIL THE TARGETS WERE TOUCHED. THE POSITION OF THE NEEDLES WAS VERIFIED WITH AP AND LATERAL VIEWS. AFTER PROPER POSITION OF THE NEEDLES WAS ACHIEVED, ISOVUE-M DYE 30% 0.1 ML WAS INJECTED SHOWING ADEQUATE SPREAD OF THE DYE. THEN A SOLUTION OF 1.9 ML OF BUPIVACAINE 0.125% OF KENALOG 10 MG WAS INJECTED AT EACH SITE. THERE WAS NO EVIDENCE OF BLOOD, PARESTHESIA OR CEREBROSPINAL FLUID DURING THE PROCEDURE. THE PATIENT WAS SENT TO THE RECOVERY ROOM. THE PATIENT WAS MOVING THE EXTREMITIES AND DOING WELL. THERE WAS NO COMPLICATION DURING THE PROCEDURE. FLUOROSCOPY TIME WAS 33 SECONDS POST PROCEDURE NOTE THE PATIENT WILL BE SEEN IN A FOLLOW UP IN THE NEXT FEW WEEKS. INSTRUCTIONS WERE GIVEN, QUESTIONS WERE ANSWERED, AND THE PATIENT EXPRESSED UNDERSTANDING AND AGREES WITH THE PLAN. I, FAHEEM SIMPSON, DOCUMENTED THE ABOVE INFORMATION ACTING A SCRIBE FOR DR. ALLEN. I HAVE REVIEWED THE ABOVE DOCUMENT, WRITTEN BY FAHEEM BA AND I VERIFY THAT IT IS ACCURATE. [facility] FACET BLOCK (PAIN)[id number] PROCEDURE CODES 28505 INJ PARAVERT F JNT L/S 1 LEV, MODIFIERS: 50 [id number] INJ PARAVERT F JNT L/S 2 LEV, MODIFIERS: 50 [id number] RADXPS IN END [id number] PXD DISPOSITION & COMMUNICATION FOLLOW UP 2 WEEKS ELECTRONICALLY SIGNED BY THAO ALLEN MD ON 10/16/2017 AT 09:47 PM EST DISCLAIMER : THIS IS A VISIT SUMMARY EXTRACTED FROM THE [facility] CHART. IT IS NOT A COPY OF THE [facility] PROGRESS NOTE. MTDD
== END ==
LOC: M PAIN 13:00
PROVIDERS: ATTEND Anesthesiology
DX: G89.29 Other chronic pain (principal); M47.816 Spondylosis without myelopathy or radiculopathy, lumbar region; M47.817 Spondylosis without myelopathy or radiculopathy, lumbosacral region; R56.9 Unspecified convulsions; G47.30 Sleep apnea, unspecified; Z79.52 Long term (current) use of systemic steroids; Z79.899 Other long term (current) drug therapy; Z87.891 Personal history of nicotine dependence
CPT/HCPCS: 64493; 64494; J3301; Q9967

== ENCOUNTER 2017-10-08 08:27 | Outpatient (RCR) | payer MEDICARE, OTHER | END 2017-11-04 | LOC: M OT 08:27 | DX: Z51.89 Encounter for other specified aftercare (principal); M18.11 Unilateral primary osteoarthritis of first carpometacarpal joint, right hand; M65.311 Trigger thumb, right thumb | CPT/HCPCS: 97110 ==

== ENCOUNTER → 2017-10-18 | Outpatient (CLI) | payer MEDICARE, OTHER | LOC: M PAIN 14:45 | DX: M47.816 Spondylosis without myelopathy or radiculopathy, lumbar region (principal); M47.817 Spondylosis without myelopathy or radiculopathy, lumbosacral region; Z79.01 Long term (current) use of anticoagulants; Z79.899 Other long term (current) drug therapy; Z87.891 Personal history of nicotine dependence; Z95.0 Presence of cardiac pacemaker | CPT/HCPCS: G0463 ==

== ENCOUNTER → 2018-03-08 | Outpatient (CLI) | payer MEDICARE, OTHER | LOC: M PAIN 14:30 | DX: M47.816 Spondylosis without myelopathy or radiculopathy, lumbar region (principal); M47.817 Spondylosis without myelopathy or radiculopathy, lumbosacral region; R56.9 Unspecified convulsions; G47.30 Sleep apnea, unspecified; Z79.01 Long term (current) use of anticoagulants; Z79.899 Other long term (current) drug therapy; Z95.0 Presence of cardiac pacemaker | CPT/HCPCS: G0463 ==

== ENCOUNTER → 2018-03-12 | Outpatient (REF) | payer MEDICARE, OTHER ==
[2018-03-12 18:12] LABS: IMMUNOGLOBULIN G 812 MG/DL (681-1648); IMMUNOGLOBULIN M 427 MG/DL (40-230)
== END ==
LOC: M LAB REF 16:36
DX: D47.2 Monoclonal gammopathy (principal)
CPT/HCPCS: 82784

== ENCOUNTER → 2018-04-09 | Outpatient (CLI) | payer MEDICARE, OTHER ==
[~2018-04-09] MED LIST changes: -/AUGM875TA PO; -/WARF5TA PO; -ACET65TA PO; -AMIO200T PO; -ANDROGEL TOP; -ASPI81TA83 OR; -ATOR40TA75 PO; +BUPIVACAINE HCL 0.25% 30 ML VIAL As Ordered; -BUPIVACAINE HCL 0.25% 30 ML VIAL As Ordered ONE; -CALCIUM; -CALCIUM W VIT D PO; -COLA100C5 PO; -COUM2.5T17 PO; -COUMADIN PO; -DDAVP; -DESM1SPR; -DESMOPRESSIN; -DESMOPRESSIN 0.01%; -DRIS50002 PO; -ISOVUE-M 300 61% 15ML VIAL (Q9967) As Ordered ONE; -KEPP750T3 PO; -Keppra PO; -LEVETIRACETAM PO; -LEVO200T4 PO; -LEVO25TA2 OR; -LEVO2TA OR; +LIDOCAINE 1% SDV INJ 30 ML VIAL As Ordered; -LIDOCAINE 1% SDV INJ 30 ML VIAL As Ordered ONE; -LIPI20TA PO; -MILKSUS PO; -MULT1TAB10 PO; -Multivitamin PO; -NAPR220C PO; -NAPR250T4 PO; -NAPR250T45 PO; -NAPR500T81 OR; -NORV5TAB PO; -NYST10PW TOP; -OMEP20CA3 PO; -OMEP20TA7 OR; -OMEP40CA2 PO; -PERC5TAB12 PO; -PERC5TAB8 OR; -PERC5TAB8 PO; -PERC7.5T8 PO; -PHEN100C OR; -PRED10TA PO; -PRED10TA2 OR; -PRED5EL OR; -PRED5TA PO; -PRED5TAB OR; -PREDNISONE PO; -PREDPOW10 PO; -SENO8.6T5 PO; -SYNT175T OR; -SYNT50TA OR; -TEST5GEL TOP; +TRIAMCINOLONE ACETONIDE SUSP 40 MG/ML VIAL (J3301) As Ordered; -TRIAMCINOLONE ACETONIDE SUSP 40 MG/ML VIAL (J3301) As Ordered ONE; -TUMS500C PO; -TYLE325T5 PO; -XARE20TA PO; -[UNRECOGNIZED DRUG - OTHER]; -[UNRECOGNIZED DRUG - OTHER]; -[UNRECOGNIZED DRUG - OTHER] TOP; -diazePAM 5 MG TAB As Ordered ONE; -naproxen OR; -oxyCODONE 5MG TAB As Ordered ONE
== END ==
LOC: M PAIN 13:00
DX: G89.29 Other chronic pain (principal); M47.816 Spondylosis without myelopathy or radiculopathy, lumbar region; M47.817 Spondylosis without myelopathy or radiculopathy, lumbosacral region; R56.9 Unspecified convulsions; G47.30 Sleep apnea, unspecified; Z79.01 Long term (current) use of anticoagulants; Z79.899 Other long term (current) drug therapy
CPT/HCPCS: J3301

== ENCOUNTER → 2018-04-29 | Outpatient (CLI) | payer MEDICARE, OTHER | LOC: M PAIN 12:30 | DX: M47.816 Spondylosis without myelopathy or radiculopathy, lumbar region (principal); M47.817 Spondylosis without myelopathy or radiculopathy, lumbosacral region; M79.1 Myalgia; R56.9 Unspecified convulsions; G47.30 Sleep apnea, unspecified; Z79.01 Long term (current) use of anticoagulants; Z79.52 Long term (current) use of systemic steroids; Z79.899 Other long term (current) drug therapy; Z96.659 Presence of unspecified artificial knee joint; Z98.84 Bariatric surgery status; Z87.891 Personal history of nicotine dependence; Z95.0 Presence of cardiac pacemaker | CPT/HCPCS: G0463 ==

== ENCOUNTER → 2018-05-06 | Outpatient (CLI) | payer MEDICARE, OTHER ==
[~2018-05-06] MED LIST changes: +BUPIVACAINE HCL 0.25% 10 ML VIAL As Ordered; -LIDOCAINE 1% SDV INJ 30 ML VIAL As Ordered; +oxyCODONE 5MG TAB As Ordered
== END ==
LOC: M PAIN 11:45
DX: G89.29 Other chronic pain (principal); M79.1 Myalgia; M54.5 Low back pain; R56.9 Unspecified convulsions; G47.30 Sleep apnea, unspecified; Z79.52 Long term (current) use of systemic steroids; Z79.899 Other long term (current) drug therapy; Z96.659 Presence of unspecified artificial knee joint; Z95.0 Presence of cardiac pacemaker; Z98.84 Bariatric surgery status; Z87.891 Personal history of nicotine dependence
CPT/HCPCS: J3301

== ENCOUNTER → 2018-05-28 | Outpatient (CLI) | payer MEDICARE, OTHER | LOC: M PAIN 09:30 | DX: M47.816 Spondylosis without myelopathy or radiculopathy, lumbar region (principal); M47.817 Spondylosis without myelopathy or radiculopathy, lumbosacral region; M79.1 Myalgia; R56.9 Unspecified convulsions; G47.30 Sleep apnea, unspecified; Z79.899 Other long term (current) drug therapy; Z86.011 Personal history of benign neoplasm of the brain; Z98.84 Bariatric surgery status; Z96.659 Presence of unspecified artificial knee joint; Z95.0 Presence of cardiac pacemaker | CPT/HCPCS: G0463 ==

== ENCOUNTER → 2018-06-17 | Outpatient (REF) | payer MEDICARE, OTHER ==
[2018-06-17 14:06] LABS: FREE T3 3.7 PG/ML (2.2-4.0); IMMUNOGLOBULIN G 719 MG/DL (681-1648); IMMUNOGLOBULIN M 445 MG/DL (40-230); TOTAL PROTEIN 6.5 GM/DL (6.4-8.2)
[2018-06-18 12:14] LABS: ALBUMIN 3.59 GM/DL (3.29-5.55); ALBUMIN % 55.3 % (55.8-66.1); ALPHA-1-GLOBULINS 0.26 GM/DL (0.17-0.41); ALPHA-2-GLOBULINS 0.85 GM/DL (0.42-0.99); BETA-1-GLOBULINS 0.38 GM/DL (0.28-0.60); BETA-1-GLOBULINS % 5.9 % (4.7-7.2); BETA-2-GLOBULINS 0.38 GM/DL (0.19-0.55); BETA-2-GLOBULINS % 5.8 % (3.2-6.5); GAMMA GLOBULINS 1.04 GM/DL (0.65-1.58)
[2018-06-18 12:53] LABS: IMMUNOTYPING SERUM IGM ABNORMAL (NORMAL); IMMUNOTYPING SERUM LAMBDA ABNORMAL (NORMAL)
== END ==
LOC: M LAB REF 12:10
DX: D47.2 Monoclonal gammopathy (principal); E03.9 Hypothyroidism, unspecified
CPT/HCPCS: 84165

== ENCOUNTER → 2018-07-02 | Outpatient (CLI) | payer MEDICARE, OTHER | LOC: M PAIN 08:30 | DX: M47.816 Spondylosis without myelopathy or radiculopathy, lumbar region (principal); M47.817 Spondylosis without myelopathy or radiculopathy, lumbosacral region; M79.1 Myalgia; R56.9 Unspecified convulsions; G47.30 Sleep apnea, unspecified; Z79.52 Long term (current) use of systemic steroids; Z79.01 Long term (current) use of anticoagulants; Z79.899 Other long term (current) drug therapy; Z95.0 Presence of cardiac pacemaker; Z96.659 Presence of unspecified artificial knee joint; Z98.84 Bariatric surgery status; Z87.891 Personal history of nicotine dependence; Z92.3 Personal history of irradiation; Z86.011 Personal history of benign neoplasm of the brain | CPT/HCPCS: G0463 ==

== ENCOUNTER → 2019-03-14 | Outpatient (REF) | payer MEDICARE, OTHER ==
[~2019-03-14] MED LIST changes: +/AUGM875TA PO; +ACET65TA PO; +AMIO200T PO; +ANDROGEL TOP; +ASPI81TA83 OR; +ATOR40TA75 PO; -BUPIVACAINE HCL 0.25% 10 ML VIAL As Ordered; -BUPIVACAINE HCL 0.25% 30 ML VIAL As Ordered; +CALCIUM; +CALCIUM W VIT D PO; +COLA100C5 PO; +COUM1TAB17 PO; +COUM2.5T17 PO; +COUMADIN PO; +DDAVP; +DESM1SPR; +DESMOPRESSIN; +DESMOPRESSIN 0.01%; +DRIS50003 PO; +KEPP750T3 PO; +Keppra PO; +LEVETIRACETAM PO; +LEVO200T4 PO; +LEVO25TA2 OR; +LEVO2TA OR; +LIPI20TA PO; +MILK120011 PO; +MULT1TAB10 PO; +Multivitamin PO; +NAPR220C PO; +NAPR250T4 PO; +NAPR250T82 PO; +NAPR500T81 OR; +NORV5TAB PO; +NYST-15 TOP; +OMEP20CA3 PO; +OMEP20TA7 OR; +OMEP40CA2 PO; +PERC5TAB12 PO; +PERC5TAB8 OR; +PERC5TAB8 PO; +PERC7.5T8 PO; +PHEN100C OR; +PRED-351 PO; +PRED10TA2 OR; +PRED5EL OR; +PRED5TA PO; +PRED5TAB OR; +PREDNISONE PO; +PREDPOW10 PO; +SENO8.6T5 PO; +SYNT175T OR; +SYNT50TA OR; +TEST5GEL TOP; -TRIAMCINOLONE ACETONIDE SUSP 40 MG/ML VIAL (J3301) As Ordered; +TUMS500C PO; +TYLE325T5 PO; +XARE20TA PO; +[UNRECOGNIZED DRUG - OTHER]; +[UNRECOGNIZED DRUG - OTHER]; +[UNRECOGNIZED DRUG - OTHER] TOP; +naproxen OR; -oxyCODONE 5MG TAB As Ordered
[2019-03-14 17:37] LABS: IMMUNOGLOBULIN G 805 MG/DL (681-1648); IRON (FE) 78 UG/DL (65-175); PERCENT SATURATION 27.6 % (19.7-50.0); TOTAL IRON BINDING CAPACITY 283 UG/DL (250-450); TOTAL PROTEIN 6.5 GM/DL (6.4-8.2); VITAMIN B12 LEVEL 568 PG/ML
[2019-03-18 10:51] LABS: ALBUMIN 3.56 GM/DL (3.29-5.55); ALBUMIN % 54.7 % (55.8-66.1); ALPHA-1-GLOBULIN % 3.6 % (2.9-4.9); ALPHA-1-GLOBULINS 0.23 GM/DL (0.17-0.41); ALPHA-2-GLOBULINS 0.85 GM/DL (0.42-0.99); ALPHA-2-GLOBULINS % 13.1 % (7.1-11.8); BETA-1-GLOBULINS 0.41 GM/DL (0.28-0.60); BETA-1-GLOBULINS % 6.3 % (4.7-7.2); BETA-2-GLOBULINS 0.34 GM/DL (0.19-0.55); BETA-2-GLOBULINS % 5.3 % (3.2-6.5); GAMMA GLOBULINS 1.11 GM/DL (0.65-1.58)
== END ==
LOC: M LAB REF 16:32
PROVIDERS: ATTEND Internal Medicine
DX: D47.2 Monoclonal gammopathy (principal); Z98.84 Bariatric surgery status

== ENCOUNTER 2019-05-13 20:31 | Emergency (ER) | payer MEDICARE, OTHER ==
[~2019-05-13] VITALS: Ht 182.9 cm; Wt 126.4 kg
[~2019-05-13 20:31] MED LIST changes: -OMEP20CA3 PO; +OMEP20CA4 PO
[2019-05-13 22:30] VITALS: BP 134/63
== END 2019-05-13 22:37 | disposition home or self-care (01) ==
LOC: M ED 20:31
DX: Z46.6 Encounter for fitting and adjustment of urinary device (principal); G47.30 Sleep apnea, unspecified; I48.91 Unspecified atrial fibrillation; Z95.0 Presence of cardiac pacemaker; Z98.84 Bariatric surgery status; Z79.899 Other long term (current) drug therapy; Z79.01 Long term (current) use of anticoagulants; Z88.8 Allergy status to other drugs, medicaments and biological substances; Z87.891 Personal history of nicotine dependence

== ENCOUNTER → 2019-05-15 | Outpatient (REF) | payer MEDICARE, OTHER ==
[~2019-05-15] MED LIST changes: +DIGO0.123 PO; +DULO1CAP6; +ELIQ5TAB; +MIRA3350 PO; +OMEP1CAP73 PO; -OMEP20CA4 PO; -OMEP40CA2 PO; +OMEP40CA97 PO; +OXYC-517
[2019-05-15 09:52] LABS: INR 1.12; PROTHROMBIN TIME 14.1 SECONDS (11.8-14.0)
[2019-05-15 09:53] LABS: PARTIAL THROMBOPLASTIN TIME 30.7 SECONDS (25.0-38.4)
== END ==
LOC: M LAB REF 09:36
PROVIDERS: ATTEND Internal Medicine
DX: Z01.818 Encounter for other preprocedural examination (principal)

== ENCOUNTER → 2019-05-15 | Outpatient (CLI) | payer MEDICARE, OTHER ==
--- NOTE | 2019-05-15 11:40 | REP ---
CT RIGHT ELBOW WITHOUT CONTRAST: HISTORY: Fracture at the elbow. Preoperative evaluation. No comparison radiographs. TECHNIQUE: Helical scanning is acquired. Axial images are reformatted. Coronal and sagittal MPR images are generated along with 3D surface rendered imaging. CT FINDINGS: There is a complex interarticular supracondylar and intercondylar fracture of the distal humerus. There is comminution, posterior displacement, and slight apex anterior angulation. The supracondylar component of the fracture is an obliquely oriented fracture through the distal humeral metaphysis from proximal medial cortex to distal lateral cortex. There is a coronally oriented component of the fracture which extends between the capitellar and the trochlear surfaces of the articular margin of the distal humerus as well. There is slight override and up to 4 mm of impaction of the cortical margin here on coronal multiplanar re-formation images. In addition, there are degenerative changes with chondrocalcinosis, ulno-trochlear osteoarthritic spurring, and soft tissue calcification about the proximal radius. There is some lateral epicondylar spurring and there is soft tissue calcification adjacent to the medial epicondyle. There does not appear to be a fracture of the proximal ulna or proximal radius. The articulations are not dislocated or subluxed. IMPRESSION: Comminuted distal humeral fracture as above. Osteoarthritis and dystrophic periarticular calcification. Electronically Signed by Huey Logan MD 05/15/2019 05:03 P
== END ==
LOC: M RAD 09:47
PROVIDERS: ATTEND Orthopaedic Surgery
DX: Z01.818 Encounter for other preprocedural examination (principal); S42.401A Unspecified fracture of lower end of right humerus, initial encounter for closed fracture; X58.XXXA Exposure to other specified factors, initial encounter; Y92.9 Unspecified place or not applicable

== ENCOUNTER 2019-05-21 18:15 | Emergency (ER) | payer MEDICARE, OTHER ==
[~2019-05-21] VITALS: Ht 182.9 cm; Wt 126.4 kg
[~2019-05-21 18:15] MED LIST changes: -DIGO0.123 PO; -DULO1CAP6; -ELIQ5TAB; -MIRA3350 PO; -OMEP1CAP73 PO; +OMEP20CA4 PO; +OMEP40CA2 PO; -OMEP40CA97 PO; -OXYC-517
[2019-05-21] MEDS ORDERED: DULO1CAP6 (18:24)
[2019-05-21] MEDS ORDERED: ELIQ5TAB (18:24)
[2019-05-21] MEDS ORDERED: OXYC-517 (18:24)
[2019-05-21] MEDS ORDERED: DIGO0.12 PO (18:24)
[2019-05-21] MEDS ORDERED: METHYLNALTREXONE BROMIDE 12 MG/0.6 ML VIAL (RELISTOR) SC ONE (19:15)
[2019-05-21] MEDS ORDERED: COLA100C5 PO (21:20)
[2019-05-21] MEDS ORDERED: MIRA3350 PO (21:20)
[2019-05-21 21:24] VITALS: BP 138/70
--- NOTE | 2019-05-22 07:39 | REP ---
Acute abdominal series three views including PA chest and supine upright abdomen: PA chest: Comparison is 08/12/2010. The lung eaton are clear. Cardiac size is normal. The nick, mediastinum, skeletal structures are unremarkable. There has been interval placement of a dual chamber pacemaker. There is no free subdiaphragmatic air. Impression: Negative PA chest. No free subdiaphragmatic air. Interval placement of a dual chamber pacemaker. Abdomen, supine upright views: Comparison is the abdomen/pelvis CT dated 08/17/2010. The bowel gas pattern is normal. There are no calcifications. There is a faintly visible artifact projected over the right upper quadrant, likely from [place] / clothing. The skeletal structures and soft tissues are otherwise unremarkable. Impression: Normal bowel gas pattern. Electronically Signed by Claude Crane MD 05/22/2019 07:31 A
== END 2019-05-21 21:35 | disposition home or self-care (01) ==
LOC: M ED 18:15
DX: K59.00 Constipation, unspecified (principal); G47.30 Sleep apnea, unspecified; Z98.84 Bariatric surgery status; Z87.891 Personal history of nicotine dependence; Z79.01 Long term (current) use of anticoagulants; Z79.899 Other long term (current) drug therapy; Z88.8 Allergy status to other drugs, medicaments and biological substances

== ENCOUNTER → 2019-06-06 | Outpatient (REF) | payer MEDICARE, OTHER ==
[~2019-06-06] MED LIST changes: +DIGO0.12 PO; +DULO1CAP6; +ELIQ5TAB; +MIRA3350 PO; +OXYC-517
[2019-06-06 13:40] LABS: BASO # 0.1 10^3/uL (0.0-0.2); BASO % 0.5 % (0.0-1.0); EOS # 0.1 10^3/uL (0.0-0.50); HEMATOCRIT 45.5 % (42.0-52.0); HEMOGLOBIN 14.2 g/dl (13.5-17.5); LYMPH # 1.3 10^3/uL (1.5-4.5); LYMPH % 8.6 % (24.0-44.0); MEAN CORPUSCULAR HEMOGLOBIN 28.5 pg (27.0-33.0); MEAN CORPUSCULAR HGB CONC 31.2 g/dl (32.0-36.5); MEAN CORPUSCULAR VOLUME 91.2 fl (80.0-96.0); MONO # 1.5 10^3/uL (0.0-0.8); MONO % 10.5 % (0.0-5.0); NEUTROPHILS # 11.4 10^3/uL (1.8-7.7); NEUTROPHILS % 78.5 % (36.0-66.0); PLATELET COUNT, AUTOMATED 219 10^3/uL (150-450); RED BLOOD COUNT 4.99 10^6/uL (4.30-6.10); WHITE BLOOD COUNT 14.5 10^3/uL (4.0-10.0)
== END ==
LOC: M LAB REF 12:28
PROVIDERS: ATTEND Internal Medicine
DX: D72.829 Elevated white blood cell count, unspecified (principal)

== ENCOUNTER → 2019-08-05 | Outpatient (REF) | payer MEDICARE, OTHER ==
[2019-08-08 13:07] LABS: Alkaline Phosphatase Iso-Bone 45 % (12-68); Alkaline Phosphatase Iso-Intes 0 % (0-18); Alkaline Phosphatase Iso-Liver 55 % (13-88); TOTAL ALK PHOS 175 IU/L (39-117)
== END ==
LOC: M LAB REF 16:38
PROVIDERS: ATTEND Internal Medicine
DX: R74.8 Abnormal levels of other serum enzymes (principal)

== ENCOUNTER 2020-06-10 12:00 | Day surgery (SDC) | payer MEDICARE, OTHER ==
[~2020-06-10 12:00] MED LIST changes: -AMIO200T PO; +AMIO200T3 PO; +BSS IRR 500ML/OMIDRIA 4ML IRR BAG (OR ONLY) (J1097 PER ML) ONE; +CEFUROXIME 1MG/0.1ML INTRACAMERAL INJ ONE; -DIGO0.12 PO; +DIGO0.123 PO; +DUOVISC (0.50ML VISCOAT/0.55ML PROVISC) OPHTH KIT ONE; +OFLOXACIN 0.3 % (OCUFLOX) OPTH SOL 5ML ONE; +OMEP1CAP73 PO; -OMEP20CA4 PO; -OMEP40CA2 PO; +OMEP40CA97 PO; +PHENYLEPHRINE 2.5% OPHTH SOL 2ML ONE; +POVIDONE-IODINE 5% OPHTH PREP SOL 30ML ONE; +PROPARACAINE 0.5% OPHTH SOL 15ML ONE; +TROPICAMIDE 1% OPHTH SOLN 2ML ONE
[2020-06-10] MEDS ORDERED: MIDAZOLAM INJ 2MG/2ML VIAL (J2250 PER 1MG) ONE (12:33)
[2020-06-10] MEDS ORDERED: fentaNYL 100 MCG/2 ML INJECTION (J3010) ONE (12:33)
--- NOTE | 2020-07-14 09:53 | RO ---
DATE OF OPERATION: 06/10/2020 PREOPERATIVE DIAGNOSIS: 1. Visually significant nuclear sclerotic cataract, left eye. POSTOPERATIVE DIAGNOSIS: 1. Visually significant nuclear sclerotic cataract, left eye. PROCEDURE: 1. Cataract extraction with use of phacoemulsification, and placement of intraocular lens, [id number], 19.0D, left eye. SURGEON: Edouard Sam DO LUMP MACHINE OPERATOR: ANESTHESIA: Local (Omidria with MAC) COMPLICATIONS: None POSTOPERATIVE CONDITION: Stable INDICATIONS FOR SURGERY: 1. Blurred vision affecting patients activities of daily living. DESCRIPTION OF PROCEDURE: The patient was seen in the preoperative area and properly identified. The correct operative eye was identified and marked. The patient received topical anesthetic, antibiotics, and topical dilating drops. The patient was then transferred to the operating room. The correct side was re-identified and a time-out was performed. The eye was prepped and draped in a sterile fashion. The eyelids were isolated with Tegaderm tape and the lids were held open with an adjustable speculum. A 1.0 mm paracentesis incision was made. Omidria was then injected into the anterior chamber. Viscoelastic was then injected into the anterior chamber through the paracentesis. Using a 2.4 mm sharp-tipped keratome, the anterior chamber was entered via a temporal clear cornea incision. A continuous curvilinear capsulorrhexis was created with Utrata forceps. Hydrodissection was performed with BSS on a blunt cannula until the nucleus was able to rotate freely. The crystalline lens was phacoemulsified and aspirated. Irrigation/aspiration was used to remove the cortical material Cohesive viscoelastic was placed into the capsular bag to deepen it. The implant was placed into the capsular bag and allowed to unfold. Placement was confirmed by visualizing the anterior capsulorrhexis. Irrigation/aspiration was used to remove the viscoelastic. The clear corneal incision was hydrated with BSS on a blunt cannula. The lens was well positioned. Intracameral antibiotic was injected into the anterior chamber. The incisions were then tested for leaks and found to be negative. The eye was then palpated for appropriate pressure and adjusted accordingly with BSS. The eyelid speculum was then carefully removed. A shield was placed over the eye. The patient tolerated the procedure well and was discharge to the recovery unit in a stable condition. [facility]
== END 2020-06-10 13:25 | disposition home or self-care (01) ==
LOC: M SDC 12:00
PROVIDERS: ATTEND Ophthalmology
DX: H25.12 Age-related nuclear cataract, left eye (principal); I48.91 Unspecified atrial fibrillation; Z95.0 Presence of cardiac pacemaker; Z79.01 Long term (current) use of anticoagulants; E03.9 Hypothyroidism, unspecified; G47.30 Sleep apnea, unspecified; G40.909 Epilepsy, unspecified, not intractable, without status epilepticus; Z79.899 Other long term (current) drug therapy; Z87.891 Personal history of nicotine dependence
CPT/HCPCS: 66984; J1097; J2250; J3010; V2632

== ENCOUNTER → 2022-06-28 | Outpatient (CLI) | payer MEDICARE, OTHER ==
[~2022-06-28] MED LIST changes: -AMIO200T3 PO; +AMIO200T49 PO; -BSS IRR 500ML/OMIDRIA 4ML IRR BAG (OR ONLY) (J1097 PER ML) ONE; -CEFUROXIME 1MG/0.1ML INTRACAMERAL INJ ONE; -DUOVISC (0.50ML VISCOAT/0.55ML PROVISC) OPHTH KIT ONE; +ISOVUE-370 76% 100ML VIAL As Ordered ONE; +NAPR-849 PO; -NAPR250T4 PO; -OFLOXACIN 0.3 % (OCUFLOX) OPTH SOL 5ML ONE; +OMEP40CA4 PO; -OMEP40CA97 PO; -PHENYLEPHRINE 2.5% OPHTH SOL 2ML ONE; -POVIDONE-IODINE 5% OPHTH PREP SOL 30ML ONE; -PROPARACAINE 0.5% OPHTH SOL 15ML ONE; -TROPICAMIDE 1% OPHTH SOLN 2ML ONE
== END ==
LOC: M RAD 10:08
PROVIDERS: ATTEND Internal Medicine
DX: R10.13 Epigastric pain (principal); K86.81 Exocrine pancreatic insufficiency
CPT/HCPCS: 74177; Q9967

== ENCOUNTER 2022-07-27 10:13 | Emergency (ER) | payer MEDICARE, OTHER ==
[~2022-07-27] VITALS: Ht 182.9 cm; Wt 104.0 kg
[~2022-07-27 10:13] MED LIST changes: -ISOVUE-370 76% 100ML VIAL As Ordered ONE
[2022-07-27] MEDS ORDERED: ACE65ERTAB PO (10:27)
[2022-07-27] MEDS ORDERED: GABA-283 PO (10:27)
[2022-07-27] MEDS ORDERED: HYDR-4468 PO (10:27)
[2022-07-27] MEDS ORDERED: VENL150C43 PO (10:27)
[2022-07-27] MEDS ORDERED: MORPHINE 2 MG/ML 1ML VIAL IV PRN (13:10)
[2022-07-27] MEDS ORDERED: NS 500 ML IV ONE (13:10)
[2022-07-27 14:03] LABS: HEMATOCRIT 33.9 % (42.0-52.0); HEMOGLOBIN 10.5 g/dl (13.5-17.5); MEAN CORPUSCULAR HEMOGLOBIN 23.9 pg (27.0-33.0); PLATELET COUNT, AUTOMATED 155 10^3/uL (150-450); WHITE BLOOD COUNT 10.4 10^3/uL (4.0-10.0)
[2022-07-27] MEDS ORDERED: ISOVUE-370 76% 100ML VIAL As Ordered ONE (14:04)
[2022-07-27 14:10] LABS: INR 1.33; PROTHROMBIN TIME 16.9 SECONDS (12.7-14.5)
[2022-07-27 14:11] LABS: PARTIAL THROMBOPLASTIN TIME 43.4 SECONDS (25.9-37.0)
[2022-07-27 14:14] LABS: APPEARANCE, URINE MANUAL CLEAR (CLEAR); COLOR, URINE MANUAL YELLOW (YELLOW)
[2022-07-27 14:15] LABS: BILIRUBIN, URINE MANUAL NEGATIVE (NEGATIVE); BLOOD URINE MANUAL NEGATIVE (NEGATIVE); GLUCOSE, URINE (UA) MANUAL NEGATIVE (NEGATIVE); KETONE, URINE MANUAL NEGATIVE (NEGATIVE); LEUKOCYTE ESTERASE, URINE MAN NEGATIVE (NEGATIVE); NITRITE, URINE MANUAL NEGATIVE (NEGATIVE); PROTEIN, URINE MANUAL NEGATIVE (NEGATIVE); UROBILINOGEN, URINE MANUAL NORMAL (NORMAL)
[2022-07-27 14:42] LABS: ALBUMIN 3.1 GM/DL (3.2-5.2); BILIRUBIN,DIRECT 0.2 MG/DL (0.0-0.2); BILIRUBIN,TOTAL 0.5 MG/DL (0.2-1.0); TOTAL PROTEIN 6.5 GM/DL (6.4-8.2)
[2022-07-27] MEDS ORDERED: MIRA3350 PO (15:47)
[2022-07-27] MEDS ORDERED: PERC5TAB12 PO (15:47)
[2022-07-27 15:54] VITALS: BP 135/62
== END 2022-07-27 16:05 | disposition home or self-care (01) ==
LOC: M ED 10:13
DX: R07.82 Intercostal pain (principal); S22.41XA Multiple fractures of ribs, right side, initial encounter for closed fracture; I48.91 Unspecified atrial fibrillation; Z88.8 Allergy status to other drugs, medicaments and biological substances; W01.0XXA Fall on same level from slipping, tripping and stumbling without subsequent striking against object, initial encounter
CPT/HCPCS: 71101; 71260; 73060; 74177; 80047; 80076; 81002; 83690; 85027; 85610; 85730; 86850; 86900; 86901; 96361; 96374; 99284; J2270; Q9967

== ENCOUNTER → 2023-04-18 | Outpatient (REF) | payer MEDICARE, OTHER ==
[~2023-04-18] MED LIST changes: +ACE65ERTAB PO; +GABA-283 PO; +HYDR-4468 PO; +VENL150C43 PO
[2023-04-18 18:16] LABS: PERCENT SATURATION 7.5 % (19.7-50.0)
== END ==
LOC: M LAB REF 16:19
PROVIDERS: ATTEND Internal Medicine
DX: D50.9 Iron deficiency anemia, unspecified (principal); G60.9 Hereditary and idiopathic neuropathy, unspecified

== ENCOUNTER → 2024-03-20 | Outpatient (REF) | payer MEDICARE, OTHER ==
[~2024-03-20] MED LIST changes: +FERR325T19; -GABA-283 PO; +GABA-284 PO; +NOXI1TAB PO; +VITMTA PO
[2024-03-20 17:36] LABS: IMMUNOGLOBULIN A 192.7 MG/DL (40-350)
[2024-03-20 17:37] LABS: IMMUNOGLOBULIN G 988 MG/DL (650-1600); IRON (FE) 105 UG/DL (65-175); PERCENT SATURATION 40.1 % (19.7-50.0); TOTAL IRON BINDING CAPACITY 262 UG/DL (250-425)
[2024-03-20 17:38] LABS: TOTAL T3 78.9 NG/DL (60.0-181.0)
== END ==
LOC: M LAB REF 16:27
PROVIDERS: ATTEND Internal Medicine
DX: E03.9 Hypothyroidism, unspecified (principal); D50.9 Iron deficiency anemia, unspecified; E23.0 Hypopituitarism; D47.2 Monoclonal gammopathy